=== PATIENT | female | born 1995 | race Caucasian/White ===

== ENCOUNTER 2021-05-13 09:01 | Emergency (ER) | payer BC, SELFPAY ==
[2021-05-13 09:10] VITALS: BP 147/96; PULSE 129; RESP 19; TEMP 36.9; O2SAT 99; BMI 31.4
[2021-05-13 09:44] LABS: UTC Influenza A Antigen Negative (Negative); UTC Influenza B Antigen Negative (Negative)
--- NOTE | 2021-05-13 09:50 | HMH.EDUTC ---
[facility] Clinical Impression: COVID-19, Sinus tachycardia Disposition: Home, Self-Care Condition on Discharge: Fair Instructions: DI for Tachycardia, DI for COVID-19 (Suspected or Confirmed ) Additional Instructions: You have been evaluated for elevated heart rates, body aches, sore throat, cough. You have been diagnosed with COVID-19. Please self isolate and quarantine for 5 days. Take Tylenol for aches and pain. Continue taking propranolol as prescribed by your primary care doctor. Stay hydrated. Follow-up with your PCP in 1 to 2 days for symptom recheck. Return to the emergency department for any new or worsening symptoms, difficulty breathing, low oxygen saturation, other concerns. Referrals: Provider,Referral, [Primary Care Provider] - Forms: Work/School Release Medical Decision Making - Prakash Inquiry Pt receiving controlled substance: No Prakash was queried for this patient: No Vital Signs: 05/13/21 09:10 05/13/21 10:05 05/13/21 10:30 Temperature 98.4 F 98.5 F Temperature Source Oral Oral Pulse Rate 114 H Pulse Rate [Right Brachial] 129 H 112 H Respiratory Rate 19 18 18 Blood Pressure 149/91 H Blood Pressure [Right Arm] 147/96 H 155/95 H Blood Pressure Mean 123 Blood Pressure Mean [Right Arm] 113 115 Blood Pressure Source [Right Arm] Automatic Cuff Blood Pressure Position [Right Arm] Sitting 02 Sat by Pulse Oximetry 99 100 100 Oxygen Delivery Method Room Air Room Air 05/13/21 11:40 Temperature 98.4 F Temperature Source Pulse Rate 107 H Pulse Rate [Right Brachial] Respiratory Rate 18 Blood Pressure 149/81 H Blood Pressure [Right Arm] Blood Pressure Mean Blood Pressure Mean [Right Arm] Blood Pressure Source [Right Arm] Blood Pressure Position [Right Arm] 02 Sat by Pulse Oximetry Oxygen Delivery Method Room Air - Lab Data Lab results reviewed: Yes: I reviewed the patient's lab results. Lab Results 05/13/21 09:18: Influenza Type A Ag Negative, Influenza Type B Ag Negative 05/13/21 09:20: SARS-CoV-2 (PCR) Detected A, Influenza A Untype (PCR) Not detected, Influenza Type B (PCR) Not detected Medical Decision Narrative: Due to patient complaining of feeling heavy in her chest and feels like heart is beating out of her chest and feeling SOA without fever and when it occurs discussed with patient and recommended transfer to the ED for further work up and evaluation and patient agreed patient state that she feels like it is beating hard again rechecked HR 142 Called ED spoke with Marely Grigsby and patient was moved to room 7 [facility] HPI - General Stated complaint: cough, sore throat, soa Time Seen by Provider: 05/13/21 09:50 Mode of Arrival: Ambulatory Source of Information: Patient Limitations: No Limitations Description of Symptoms (Recalled from Triage Doc. 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 and had cough, sore throat diarrhea and bodyaches State that she went to work last night and she noticed she felt heavy in her chest and felt like her heart was beating out of her chest State that she checked her Temp thinking she may have had a fever and she didnt States that her watch kept alarming telling her that her Heartrate was elevated and was ranging anywhere between 125-160 States that she is on Propranolol currently but this morning she was feeling heavy in her chest and felt like her heart was beating out of her chest so she came in concerned and wanted to be tested for COVID to see if that is why her heart feels like i
--- NOTE | 2021-05-13 10:00 | ECG_ITS ---
APPROVED REPORT Exam: Resting ECG HR:115 bpm ECG Measurements Heart Rate 115 AXES OH 138 P 43 QRSd 78 QRS 29 QT 306 T 32 QTc 423 Conclusion Sinus tachycardia Otherwise normal ECG Electronically signed by : Ty Hong MD 05/14/2021 09:00:30
[2021-05-13 10:05] VITALS: BP 155/95; PULSE 112; RESP 18; TEMP 36.9; O2SAT 100; BMI 33.3
--- NOTE | 2021-05-13 10:10 | HMH.EDGENADL ---
ED Disposition Clinical Impression: COVID-19, Sinus tachycardia Disposition: Home, Self-Care Condition on Discharge: Good Instructions: DI for Tachycardia, DI for COVID-19 (Suspected or Confirmed ) Additional Instructions: You have been evaluated for elevated heart rates, body aches, sore throat, cough. You have been diagnosed with COVID-19. Please self isolate and quarantine for 5 days. Take Tylenol for aches and pain. Continue taking propranolol as prescribed by your primary care doctor. Stay hydrated. Follow-up with your PCP in 1 to 2 days for symptom recheck. Return to the emergency department for any new or worsening symptoms, difficulty breathing, low oxygen saturation, other concerns. Referrals: Provider,Referral, [Primary Care Provider] - Forms: Work/School Release Time of Disposition: 10:42 - Critical Care Critical Care Time: No Attestation: On 05/13/21, the high probability of a clinically significant, sudden or life threatening deterioration of the following system(s) required my full and direct attention, intervention and personal management. The time I documented below is in addition to time spent performing reported procedures but includes the following listed in this critical care notation. Medical Decision Making - Medical Records Medical records reviewed: Yes: I reviewed the patient's medical records. - Prakash Inquiry Pt receiving controlled substance: No Vital Signs: 05/13/21 09:10 05/13/21 10:05 Temperature 98.4 F 98.5 F Temperature Source Oral Oral Pulse Rate [Right Brachial] 129 H 112 H Respiratory Rate 19 18 Blood Pressure [Right Arm] 147/96 H 155/95 H Blood Pressure Mean [Right Arm] 113 115 Blood Pressure Source [Right Arm] Automatic Cuff Blood Pressure Position [Right Arm] Sitting 02 Sat by Pulse Oximetry 99 100 Oxygen Delivery Method Room Air Room Air - Lab Data Lab Results 05/13/21 09:18: Influenza Type A Ag Negative, Influenza Type B Ag Negative 05/13/21 09:20: SARS-CoV-2 (PCR) Detected A, Influenza A Untype (PCR) Not detected, Influenza Type B (PCR) Not detected Orders (Tests/Meds): ORDERS Category Date Time Status CXR --portable [XR chest portable] Stat Exams 05/13/21 10:12 Taken Covid-19 Nasal PCR ([facility]) Routine Lab 05/13/21 09:20 Stop Req - ECG Data Tracing #1 NS rhythm with ventricular rate of 115 bpm. QRS 78, QTc 423. No ST segment changes. No arrhythmia. Medical Decision Narrative: In summary this is a 26-year-old female with history of palpitations presenting to the emergency department with rapid heart rate, cough, sore throat. Patient clinically stable on arrival. She is tachycardic to 115. Concern for pneumonia, bronchitis, COVID-19, influenza. Will obtain chest x-ray, EKG, rapid COVID testing. EKG shows sinus tachycardia. No other abnormalities. Chest x-ray shows no focal opacity or multifocal pneumonia. Influenza testing negative. COVID test positive. Patient counseled on findings. She will need to self isolate and quarantine for 5 days. Counseled on conservative management, Tylenol for aches, pains, fever. Encouraged oral hydration. Follow-up with PCP. Given return precautions. Stable for discharge. General Adult HPI - General Stated complaint: cough, sore throat, soa Time Seen by Provider: 05/13/21 09:50 Mode of Arrival: Ambulatory Source of Information: Patient Limitations: No Limitations Description of Symptoms (Recalled from ER Triage Doc. by RN): PATIENT C/O COUGH, SOA, SORE THROAT, BODY ACHES, HOARSENESS, DIARRHEA, AND HEART RACING WITH EXERTION SINCE YESTERDAY - History of Present Illness HPI narrative: 26-year-old female presenting to the emergency department with palpitations. Symptoms started yesterday afternoon. She had cough and chills, voice is hoarse. She has had rapid heart rate and palpitations. She was able to work overnight, as a nurse. This morning the symptoms continued. She presented to the
--- NOTE | 2021-05-13 10:12 | XR_ITS ---
PROCEDURE INFORMATION: Exam: XR Chest Exam date and time: 05/13/2021 10:12 AM Age: 26 years old Clinical indication: Cough TECHNIQUE: Imaging protocol: XR of the chest. Views: 1 view. COMPARISON: No relevant prior studies available. FINDINGS: Lungs: Unremarkable. No consolidation. Pleural spaces: Unremarkable. No pleural effusion. No pneumothorax. Heart/Mediastinum: Unremarkable. No cardiomegaly. Bones/joints: Unremarkable. IMPRESSION: No acute findings.
[2021-05-13 10:20] LABS: Influenza A, PCR Not Detected (NotDetected); Influenza B, PCR Not Detected (NotDetected)
[2021-05-13 10:23] LABS: Coronavirus 19, PCR Detected (NotDetected)
[2021-05-13 10:30] VITALS: BP 149/91; PULSE 114; RESP 18; O2SAT 100
[2021-05-13 11:40] VITALS: BP 149/81; PULSE 107; RESP 18; TEMP 36.9; O2SAT 100
== END 2021-05-13 12:43 | disposition home or self-care (01) ==
LOC: UTC 10:03 → ER 10:04
PROVIDERS: Emergency Provider Nurse Practitioner
DX: U07.1 COVID-19 (principal); R00.0 Tachycardia, unspecified; R06.02 Shortness of breath
CPT/HCPCS: 71045; 87804; 93005; 99282; C9803; U0003; U0005

== ENCOUNTER 2023-08-23 10:00 | Outpatient (RCR) | payer OTHER, SELFPAY | END 2023-08-23 11:00 | disposition home or self-care (01) | LOC: OT 10:00 | PROVIDERS: Visit Provider Preventive Medicine Preventive Medicine/Occupational Environmental Medicine | DX: M79.642 Pain in left hand (principal); S67.22XA Crushing injury of left hand, initial encounter | CPT/HCPCS: 97010; 97014; 97035; 97110; 97140; 97164; 97166; G0283 ==

== ENCOUNTER 2024-02-14 22:16 | Emergency (ER) | payer BC, SELFPAY ==
[2024-02-14 22:18] VITALS: BP 153/83; PULSE 144; RESP 20; TEMP 37.3; O2SAT 100; BMI 37.8
--- NOTE | 2024-02-14 22:25 | ECG_ITS ---
APPROVED REPORT Exam: Resting ECG HR:138 bpm ECG Measurements Heart Rate 138 AXES [place] 144 P 51 QRSd 100 QRS 50 QT 330 T 41 QTc 410 Conclusion Sinus tachycardia Incomplete right bundle branch block Electronically signed by : MEY KOWALSKI, 02/15/2024 22:50:03
--- NOTE | 2024-02-14 22:26 | XR_ITS ---
PROCEDURE INFORMATION: Exam: XR Chest Exam date and time: 02/14/2024 11:16 PM Age: 28 years old Clinical indication: Shortness of breath; Additional info: SOA TECHNIQUE: Imaging protocol: Radiologic exam of the chest. Views: 2 views. Total images: 2 COMPARISON: CR XR CHEST PORTABLE 05/13/2021 10:32 AM FINDINGS: Lungs: Unremarkable. No consolidation. No pulmonary vascular congestion or edema. Pleural spaces: Unremarkable. No pleural effusion. No pneumothorax. Heart/Mediastinum: Unremarkable. No cardiomegaly. No mediastinal widening or hilar enlargement. Bones/joints: Unremarkable. IMPRESSION: No radiographically acute cardiopulmonary process.
--- NOTE | 2024-02-14 22:30 | HMH.EDGENADL ---
Discharge Plan Disposition Patient Disposition: Home, Self-Care Condition: Good Prescriptions Prescriptions: No Action No Known Home Medications Referrals Follow up/Referrals: Juana Schultz APRN [Primary Care Provider] - See instructions Martin Huggins MD [Staff Physician] - See instructions (palpitations, sinus tachycardia) Activity Restrictions/Add. Instructions Additional Instructions/Restrictions: You were evaluated in the ER and are appropriate for discharge at this time. Continue all home medications. Make an appointment with your primary care doctor for reevaluation soon as possible. Also make an appointment with cardiology for repeat echo and additional follow-up. Return to the ER with new, worsening, or otherwise concerning symptoms. Clinical Impressions Clinical Impression: Palpitations Print Language Print Language: [place] Discharge ED Provider: Dane Doran Adult HPI <PORSCHE Ernst - Last Filed: 02/14/24 23:07> General Chief complaint: Dizziness Stated complaint: High heart rate,dizziness Time Seen by Provider: 02/14/24 22:25 Mode of Arrival: Ambulatory Source of Information: Patient Limitations: No Limitations History of Present Illness HPI narrative: 28-year-old female presents to the emergency department with tachycardia, shortness of breath, palpitations, chest tightness that started approximately around 6 PM today, patient noticed that her heart rate on her Apple Watch, read around 120 to 140 bpm this prompted her emergency department visit. Patient states she has a past medical history consistent with tachycardia, has seen fur grader, has had Holter monitor, which she will do no results, has had echocardiogram performed, which noted trace mitral valve regurgitation and trace tricuspid valve regurgitation. Patient states that her tachycardia started after having COVID , last year. Patient has been on propranolol 40 mg up to 80 mg daily as needed, patient is taken 40 mg p.o. propranolol today with little to no relief of symptomatology. Patient denies any fever chills, denies, nausea, vomiting, constipation, diarrhea, does admit to IBS, still has some form of this, but none outside of her normal, denies any urinary type symptomatology, vaginal type symptomatology, she does admit to some dizziness , but no headache, no presyncopal or syncopal event. Patient has no other real relevant past medical history taking takes no medication at home, occasionally uses alcohol, denies any drug use or tobacco products. Initial triage vitals notable for tachycardia otherwise unremarkable. Onset (ago): hour(s) Related Data Home Medications ?Medication ?Instructions ?Recorded ?Confirmed No Known Home Medications 01/24/23 01/24/23 Allergies Allergy/AdvReac Type Severity Reaction Status Date / Time levofloxacin [From Levaquin] Allergy Verified 05/13/21 09:50 [facility] <PORSCHE Ernst - Last Filed: 02/14/24 23:07> [facility] Disclaimer: The information contained in this section may have been updated after the patient was seen, as this information can be updated by other users. Social History Smoking Status: Never smoker alcohol intake: never current occupational status: other Travel in the last 8 weeks: None Other Medical History Have you received the Flu Vaccine for this season: Yes Have you received the Pneumonia Vaccine: Yes <PORSCHE Ernst - Last Filed: 02/14/24 23:07> ROS Obtained: Yes All systems reviewed & no additional complaints except as documented Physical Exam <PORSCHE Ernst - Last Filed: 02/14/24 23:07> General General appearance: alert, in no apparent distress and anxious Head Head exam: atraumatic and normocephalic Eye Eye exam: Present normal appearance, PERRL and EOMI Neck Neck exam: Present full ROM; Absent meningismus Chest Chest inspection: Present normal inspection Respiratory Respiratory exam: Present normal lung sounds bilaterally; Absent respiratory distress, wheezes, stridor, accessory muscle use or prolonged expiratory phase Cardiovascular Cardiovascular exam: Present normal rhythm, tachycardia and other (Pulses equal and symmetric in bilateral upper and lower extremities); Absent rubs, gallop or clicks Abdominal Exam Abdominal exam: Absent distention, tenderness, guarding, rebound or rigidity Extremities Exam Extremities exam: Absent edema Neurological Exam Neurological exam: Present alert Psychiatric Psychiatric exam: Present normal affect Skin Skin exam: Present warm and dry Medical Decision Making <PORSCHE Ernst - Last Filed: 02/14/24 23:07> Medical Records Medical records reviewed: Yes I reviewed the patient's medical records. Screening: Per USPSTF and CDC recommendations, given the prevalence of disease in our region, it is our hospital?s policy to screen for HIV and viral Hepatitis for all patients aged 18 and over and those with ongoing risk factors. Prakash Inquiry Pt receiving controlled substance: No Vital Signs: 02/14/24 22:18 02/15/24 02:01 Temperature 99.1 F 98.9 F Temperature Source Oral Oral Pulse Rate 90 Pulse Rate [Apical] 144 H Respiratory Rate 20 18 Blood Pressure 147/69 H Blood Pressure [Right Arm] 153/83 H Blood Pressure Mean [Right Arm] 106 Blood Pressure Source Automatic Cuff Blood Pressure Source [Right Arm] Automatic Cuff Blood Pressure Position Supine Blood Pressure Position [Right Arm] Sitting 02 Sat by Pulse Oximetry 100 Oxygen Delivery Method Room Air Room Air Lab Data Lab results reviewed: Yes I reviewed the patient's lab results. Lab Results 02/14/24 22:53: WBC 11.2 H, RBC 4.36, Hgb 13.2, Hct 40.0, MCV 91.8, MCH 30.3, MCHC 33.1, RDW 12.8, Plt Count 248, MPV 7.8, Neut % (Auto) 65.9, Lymph % (Auto) 23.3, [place] % (Auto) 7.5, Eos % (Auto) 2.4, Baso % (Auto) 0.9, Neut # (Auto) 7.4, Lymph # (Auto) 2.6, [place] # (Auto) 0.8, Eos # (Auto) 0.3, Baso # (Auto) 0.1, PT 10.9, INR 0.97, D-Dimer 0.26, Sodium 133 L, Potassium 3.5, Chloride 107, Carbon Dioxide 26, Anion Gap 3.5 L, BUN 13, Creatinine 1.00, Estimated Creat Clear 130, Estimated GFR 65, Est GFR ( Amer) 79, Glucose 101 H, Calcium 9.4, Total Bilirubin 0.7, AST 30, ALT 26, Alkaline Phosphatase 72, Troponin I < 0.01, NT-Pro-B Natriuret Pep 25.0, Total Protein 7.5, Albumin 4.4, Globulin 3.1, Albumin/Globulin Ratio 1.4, TSH 3.09, Free T4 1.56, Serum HCG, Qual Negative, HIV 1&2 Antibody Rapid Nonreactive 02/15/24 01:29: Troponin I < 0.01 02/14/24 22:53 02/14/24 22:53 Orders (Tests/Meds): ED MEDICATIONS Discontinued Medications Generic Name Dose Route Start Last Admin Trade Name Freq PRN Reason Stop Dose Admin Aspirin 324 mg 02/14/24 22:25 02/14/24 23:05 Aspirin 81mg Chewable Tablet PO 02/14/24 22:26 324 mg ONCE ONE Administration Aspirin 325 mg 02/15/24 09:00 Aspirin Ec 325mg Tablet PO 03/16/24 08:59 DAILY ELGIN Aspirin 324 mg 02/14/24 22:50 02/14/24 22:53 Aspirin 81mg Chewable Tablet PO 02/14/24 22:51 324 mg ONCE ONE Administration Nitroglycerin 0.4 mg 02/14/24 22:25 Nitroglycerin 0.4mg Sl Tablet SL 02/15/24 22:26 Q5MINP PRN Chest Pain Propranolol HCl 20 mg 02/14/24 23:39 02/15/24 00:03 Propranolol 20mg Tab PO 02/14/24 23:40 20 mg ONCE ONE Administration ORDERS Category Date Time Status XR chest 2V Stat Exams 02/14/24 22:26 Completed Complete Blood Count Auto Diff Stat Lab 02/14/24 22:53 Completed Comprehensive Metabolic Panel Stat Lab 02/14/24 22:53 Completed D-Dimer Stat Lab 02/14/24 22:53 Completed Free T4 (Free Thyroxine) Stat Lab 02/14/24 22:53 Completed HCG Qualitative, Serum Stat Lab 02/14/24 22:53 Completed HIV (1&2) Antibody Rapid Stat Lab 02/14/24 22:53 Completed Hep C Ab with Reflex to RNA Stat Lab 02/14/24 22:53 Received NT Pro Brain Natriuretic Pep. Stat Lab 02/14/24 22:53 Completed Prothrombin Time INR Stat Lab 02/14/24 22:53 Completed TSH [Thyroid Stimulating Hormone] Stat Lab 02/14/24 22:53 Completed Troponin I Q3H Lab 02/15/24 01:29 Completed Troponin I Stat Lab 02/14/24 22:53 Completed Medical Decision Narrative: 28-year-old female presents emergency department with tachycardia, palpitation, shortness of breath, chest tightness, differential diagnose include but not limited to cardiac arrhythmia, electrolyte disturbance, valvular disorder, PE, pneumonia, ACS, anxiety type reaction, panic attack. Obtain CBC CMP, D-dimer, proBNP, PT/INR, troponin, continuous environmental monitoring technician, Pulsoxymeter monitor, chest x-ray, give 325 mg p.o. aspirin. I discussed patient case with the attending physician Dr. Escamilla I along with the attending physician reviewed the patient's EKG, sinus tachycardia at 138 bpm, GA interval within normal limits, QT interval within normal limits there is no STEMI, possible incomplete right bundle branch block. CBC notable for mild leukocytosis, for 11.2 otherwise unremarkable. I discussed patient case with the attending physician at shift change, she will be assuming the patient's care/workup. <Dane Doran MD - Last Filed: 02/15/24 01:59> Vital Signs: 02/14/24 22:18 02/15/24 02:01 Temperature 99.1 F 98.9 F Temperature Source Oral Oral Pulse Rate 90 Pulse Rate [Apical] 144 H Respiratory Rate 20 18 Blood Pressure 147/69 H Blood Pressure [Right Arm] 153/83 H Blood Pressure Mean [Right Arm] 106 Blood Pressure Source Automatic Cuff Blood Pressure Source [Right Arm] Automatic Cuff Blood Pressure Position Supine Blood Pressure Position [Right Arm] Sitting 02 Sat by Pulse Oximetry 100 Oxygen Delivery Method Room Air Room Air Lab Data Lab Results 02/14/24 22:53: WBC 11.2 H, RBC 4.36, Hgb 13.2, Hct 40.0, MCV 91.8, MCH 30.3, MCHC 33.1, RDW 12.8, Plt Count 248, MPV 7.8, Neut % (Auto) 65.9, Lymph % (Auto) 23.3, [place] % (Auto) 7.5, Eos % (Auto) 2.4, Baso % (Auto) 0.9, Neut # (Auto) 7.4, Lymph # (Auto) 2.6, [place] # (Auto) 0.8, Eos # (Auto) 0.3, Baso # (Auto) 0.1, PT 10.9, INR 0.97, D-Dimer 0.26, Sodium 133 L, Potassium 3.5, Chloride 107, Carbon Dioxide 26, Anion Gap 3.5 L, BUN 13, Creatinine 1.00, Estimated Creat Clear 130, Estimated GFR 65, Est GFR ( Amer) 79, Glucose 101 H, Calcium 9.4, Total Bilirubin 0.7, AST 30, ALT 26, Alkaline Phosphatase 72, Troponin I < 0.01, NT-Pro-B Natriuret Pep 25.0, Total Protein 7.5, Albumin 4.4, Globulin 3.1, Albumin/Globulin Ratio 1.4, TSH 3.09, Free T4 1.56, Serum HCG, Qual Negative, HIV 1&2 Antibody Rapid Nonreactive 02/15/24 01:29: Troponin I < 0.01 Orders (Tests/Meds): ED MEDICATIONS Discontinued Medications Generic Name Dose Route Start Last Admin Trade Name Yuli PRN Reason Stop Dose Admin Aspirin 324 mg 02/14/24 22:25 02/14/24 23:05 Aspirin 81mg Chewable Tablet PO 02/14/24 22:26 324 mg ONCE ONE Administration Aspirin 325 mg 02/15/24 09:00 Aspirin Ec 325mg Tablet PO 03/16/24 08:59 DAILY ELGIN Aspirin 324 mg 02/14/24 22:50 02/14/24 22:53 Aspirin 81mg Chewable Tablet PO 02/14/24 22:51 324 mg ONCE ONE Administration Nitroglycerin 0.4 mg 02/14/24 22:25 Nitroglycerin 0.4mg Sl Tablet SL 02/15/24 22:26 Q5MINP PRN Chest Pain Propranolol HCl 20 mg 02/14/24 23:39 02/15/24 00:03 Propranolol 20mg Tab PO 02/14/24 23:40 20 mg ONCE ONE Administration ORDERS Category Date Time Status XR chest 2V Stat Exams 02/14/24 22:26 Completed Complete Blood Count Auto Diff Stat Lab 02/14/24 22:53 Completed Comprehensive Metabolic Panel Stat Lab 02/14/24 22:53 Completed D-Dimer Stat Lab 02/14/24 22:53 Completed Free T4 (Free Thyroxine) Stat Lab 02/14/24 22:53 Completed HCG Qualitative, Serum Stat Lab 02/14/24 22:53 Completed HIV (1&2) Antibody Rapid Stat Lab 02/14/24 22:53 Completed Hep C Ab with Reflex to RNA Stat Lab 02/14/24 22:53 Received NT Pro Brain Natriuretic Pep. Stat Lab 02/14/24 22:53 Completed Prothrombin Time INR Stat Lab 02/14/24 22:53 Completed TSH [Thyroid Stimulating Hormone] Stat Lab 02/14/24 22:53 Completed Troponin I Q3H Lab 02/15/24 01:29 Completed Troponin I Stat Lab 02/14/24 22:53 Completed Medical Decision Narrative: 28-year-old female presents emergency department with tachycardia, palpitation, shortness of breath, chest tightness, differential diagnose include but not limited to cardiac arrhythmia, electrolyte disturbance, valvular disorder, PE, pneumonia, ACS, anxiety type reaction, panic attack. Obtain CBC CMP, D-dimer, proBNP, PT/INR, troponin, continuous environmental monitoring technician, Pulsoxymeter monitor, chest x-ray, give 325 mg p.o. aspirin. I discussed patient case with the attending physician Dr. Escamilla I along with the attending physician reviewed the patient's EKG, sinus tachycardia at 138 bpm, GA interval within normal limits, QT interval within normal limits there is no STEMI, possible incomplete right bundle branch block. CBC notable for mild leukocytosis, for 11.2 otherwise unremarkable. I discussed patient case with the attending physician at shift change, she will be assuming the patient's care/workup. Doran: By my assumption of care patient is stable. She remains tachycardic though her heart rate is now down to the 120s. She states her symptoms have improved somewhat. I agree with the assessment and plan from primary providers. Patient has mild hyponatremia, initial troponin undetectably low at less than 0.01, D-dimer negative, reassuring against PE, TSH and T4 were added by me and are normal. Repeat ECG personally interpreted demonstrates sinus tachycardia, rate 100, normal GA and QTc, normal axis, no STEMI. Initial ECG prior to my assumption of care demonstrated sinus tachycardia, rate 138, normal axis, normal GA and QTc, no STEMI Patient received 20 mg oral propranolol. She states her propranolol had been prescribed 40 mg twice daily but she only takes in the morning because if she takes it at night she gets hypotensive. She was amenable to trying a half dose tonight due to her symptoms. On reassessment after receiving propranolol in the ER, she has had symptomatic improvement. She still states that she feels mildly lightheaded but the discomfort in her chest has resolved. Repeat troponin pending. Repeat troponin also undetectably low at less than 0.01. Patient is appropriate for discharge at this time. She has been referred to cardiology for repeat echo and additional follow-up. I recommended she contact her primary care doctor to address her propranolol dosing for better symptomatic management since they currently manage it. Patient was given instructions on symptomatic management, follow up instructions, and return precautions for the emergency department. Patient indicated understanding and was discharged in stable condition. <Fitz Escamilla MD - Last Filed: 02/15/24 15:08> Vital Signs: 02/14/24 22:18 02/15/24 02:01 Temperature 99.1 F 98.9 F Temperature Source Oral Oral Pulse Rate 90 Pulse Rate [Apical] 144 H Respiratory Rate 20 18 Blood Pressure 147/69 H Blood Pressure [Right Arm] 153/83 H Blood Pressure Mean [Right Arm] 106 Blood Pressure Source Automatic Cuff Blood Pressure Source [Right Arm] Automatic Cuff Blood Pressure Position Supine Blood Pressure Position [Right Arm] Sitting 02 Sat by Pulse Oximetry 100 Oxygen Delivery Method Room Air Room Air Lab Data Lab Results 02/14/24 22:53: WBC 11.2 H, RBC 4.36, Hgb 13.2, Hct 40.0, MCV 91.8, MCH 30.3, MCHC 33.1, RDW 12.8, Plt Count 248, MPV 7.8, Neut % (Auto) 65.9, Lymph % (Auto) 23.3, [place] % (Auto) 7.5, Eos % (Auto) 2.4, Baso % (Auto) 0.9, Neut # (Auto) 7.4, Lymph # (Auto) 2.6, [place] # (Auto) 0.8, Eos # (Auto) 0.3, Baso # (Auto) 0.1, PT 10.9, INR 0.97, D-Dimer 0.26, Sodium 133 L, Potassium 3.5, Chloride 107, Carbon Dioxide 26, Anion Gap 3.5 L, BUN 13, Creatinine 1.00, Estimated Creat Clear 130, Estimated GFR 65, Est GFR ( Amer) 79, Glucose 101 H, Calcium 9.4, Total Bilirubin 0.7, AST 30, ALT 26, Alkaline Phosphatase 72, Troponin I < 0.01, NT-Pro-B Natriuret Pep 25.0, Total Protein 7.5, Albumin 4.4, Globulin 3.1, Albumin/Globulin Ratio 1.4, TSH 3.09, Free T4 1.56, Serum HCG, Qual Negative, HIV 1&2 Antibody Rapid Nonreactive 02/15/24 01:29: Troponin I < 0.01 Orders (Tests/Meds): ED MEDICATIONS Discontinued Medications Generic Name Dose Route Start Last Admin Trade Name Freq PRN Reason Stop Dose Admin Aspirin 324 mg 02/14/24 22:25 02/14/24 23:05 Aspirin 81mg Chewable Tablet PO 02/14/24 22:26 324 mg ONCE ONE Administration Aspirin 325 mg 02/15/24 09:00 Aspirin Ec 325mg Tablet PO 03/16/24 08:59 DAILY ELGIN Aspirin 324 mg 02/14/24 22:50 02/14/24 22:53 Aspirin 81mg Chewable Tablet PO 02/14/24 22:51 324 mg ONCE ONE Administration Nitroglycerin 0.4 mg 02/14/24 22:25 Nitroglycerin 0.4mg Sl Tablet SL 02/15/24 22:26 Q5MINP PRN Chest Pain Propranolol HCl 20 mg 02/14/24 23:39 02/15/24 00:03 Propranolol 20mg Tab PO 02/14/24 23:40 20 mg ONCE ONE Administration ORDERS Category Date Time Status XR chest 2V Stat Exams 02/14/24 22:26 Completed Complete Blood Count Auto Diff Stat Lab 02/14/24 22:53 Completed Comprehensive Metabolic Panel Stat Lab 02/14/24 22:53 Completed D-Dimer Stat Lab 02/14/24 22:53 Completed Free T4 (Free Thyroxine) Stat Lab 02/14/24 22:53 Completed HCG Qualitative, Serum Stat Lab 02/14/24 22:53 Completed HIV (1&2) Antibody Rapid Stat Lab 02/14/24 22:53 Completed Hep C Ab with Reflex to RNA Stat Lab 02/14/24 22:53 Received NT Pro Brain Natriuretic Pep. Stat Lab 02/14/24 22:53 Completed Prothrombin Time INR Stat Lab 02/14/24 22:53 Completed TSH [Thyroid Stimulating Hormone] Stat Lab 02/14/24 22:53 Completed Troponin I Q3H Lab 02/15/24 01:29 Completed Troponin I Stat Lab 02/14/24 22:53 Completed Medical Decision Narrative: 28-year-old female presents emergency department with tachycardia, palpitation, shortness of breath, chest tightness, differential diagnose include but not limited to cardiac arrhythmia, electrolyte disturbance, valvular disorder, PE, pneumonia, ACS, anxiety type reaction, panic attack. Obtain CBC CMP, D-dimer, proBNP, PT/INR, troponin, continuous environmental monitoring technician, Pulsoxymeter monitor, chest x-ray, give 325 mg p.o. aspirin. I discussed patient case with the attending physician Dr. Escamilla I along with the attending physician reviewed the patient's EKG, sinus tachycardia at 138 bpm, GA interval within normal limits, QT interval within normal limits there is no STEMI, possible incomplete right bundle branch block. CBC notable for mild leukocytosis, for 11.2 otherwise unremarkable. I discussed patient case with the attending physician at shift change, she will be assuming the patient's care/workup. I was consulted by the LENORA, and we discussed the complexity of the problems being addressed. I approved the treatment and management plan for this patient's care in the Emergency Department, thus performing a substantive portion of the medical decision making. Fitz Escamilla MD Doran: By my assumption of care patient is stable. She remains tachycardic though her heart rate is now down to the 120s. She states her symptoms have improved somewhat. I agree with the assessment and plan from primary providers. Patient has mild hyponatremia, initial troponin undetectably low at less than 0.01, D-dimer negative, reassuring against PE, TSH and T4 were added by me and are normal. Repeat ECG personally interpreted demonstrates sinus tachycardia, rate 100, normal GA and QTc, normal axis, no STEMI. Initial ECG prior to my assumption of care demonstrated sinus tachycardia, rate 138, normal axis, normal GA and QTc, no STEMI Patient received 20 mg oral propranolol. She states her propranolol had been prescribed 40 mg twice daily but she only takes in the morning because if she takes it at night she gets hypotensive. She was amenable to trying a half dose tonight due to her symptoms. On reassessment after receiving propranolol in the ER, she has had symptomatic improvement. She still states that she feels mildly lightheaded but the discomfort in her chest has resolved. Repeat troponin pending. Repeat troponin also undetectably low at less than 0.01. Patient is appropriate for discharge at this time. She has been referred to cardiology for repeat echo and additional follow-up. I recommended she contact her primary care doctor to address her propranolol dosing for better symptomatic management since they currently manage it. Patient was given instructions on symptomatic management, follow up instructions, and return precautions for the emergency department. Patient indicated understanding and was discharged in stable condition. Critical Care <PORSCHE Ernst - Last Filed: 02/14/24 23:07> Critical Care Time Critical Care Time: No
[2024-02-14] MEDS: ASPIRIN 81MG CHEWABLE TABLET 324 MG PO ×2 (22:53→23:05)
[2024-02-14 23:03] LABS: Basophils # 0.1 K/mm3 (0-0.2); Basophils % 0.9 % (0.1-2.0); Eosinophils # 0.3 K/mm3 (0.0-0.4); Eosinophils % 2.4 % (0.1-12.0); Hemoglobin 13.2 g/dL (12.2-16.2); Lymphocytes # 2.6 K/mm3 (0.7-4.5); Lymphocytes % 23.3 % (10-50); Mean Corpuscular HGB Conc 33.1 g/dL (31.8-35.4); Mean Corpuscular Hemoglobin 30.3 pg (27.0-31.2); Mean Corpuscular Volume 91.8 fl (81-99); Mean Platelet Volume 7.8 fl (7.4-10.4); Monocytes # 0.8 K/mm3 (0.1-1.0); Monocytes % 7.5 % (1.7-9.3); Neutrophils # 7.4 K/mm3 (1.8-7.8); Neutrophils % 65.9 % (37.0-80.0); Platelet Count 248 K/mm3 (142-424); Red Blood Count 4.36 M/mm3 (4.20-5.40); Red Cell Distribution Width 12.8 % (11.5-17.5); White Blood Count 11.2 K/mm3 (4.8-10.8)
[2024-02-14 23:11] LABS: Alanine Aminotransferase 26 U/L (12-78); Albumin Level 4.4 g/dl (3.5-5.0); Albumin/Globulin Ratio 1.4 (1.1-1.8); Alkaline Phosphatase 72 U/L (38-126); Anion Gap 3.5 mEq/L (5-15); Aspartate Amino Transferase 30 U/L (14-36); Bilirubin,Total 0.7 mg/dl (0.2-1.3); Blood Urea Nitrogen 13 mg/dl (7-17); Calcium 9.4 mg/dl (8.4-10.2); Carbon Dioxide 26 mmol/L (22.0-30.0); Chloride 107 mmol/L (98-107); Creatinine Clearance Estimated 130 mL/min (50-200); Estimated Glomerular Filt Rate 65 ml/min (>60); GFR (African American) 79 ML/MIN (>60); Globulin 3.1 g/dL (1.3-3.2); Glucose 101 mg/dl (74-100); Potassium 3.5 mmoL/L (3.5-5.1); Sodium 133 mmol/L (136-145); Total Protein,Serum 7.5 g/dl (6.3-8.2)
[2024-02-14 23:12] LABS: INR 0.97 (0.9-1.1); Prothrombin Time 10.9 seconds (10.1-12.5)
[2024-02-14 23:13] LABS: HCG Qualitative, Serum Negative (Negative)
[2024-02-14 23:18] LABS: D-Dimer 0.26 ug/mL (0.0-0.5)
[2024-02-14 23:35] LABS: Troponin I < 0.01 ng/ml (0.00-0.034)
--- NOTE | 2024-02-14 23:49 | ECG_ITS ---
APPROVED REPORT Exam: Resting ECG HR:100 bpm ECG Measurements Heart Rate 100 AXES FL 145 P 48 QRSd 102 QRS 42 QT 333 T 31 QTc 390 Conclusion SINUS TACHYCARDIA LOW QRS VOLTAGE IN PRECORDIAL LEADS [QRS DEFLECTION < 1.0 mV IN CHEST LEADS] INCOMPLETE RIGHT BUNDLE BRANCH BLOCK [90+ ms QRS DURATION, TERMINAL R IN V1/V2, 40+ ms S IN I/aVL/V4/V5/V6] No STEMI Electronically signed by : OMAR KNOTT, 02/15/2024 07:14:53
[2024-02-15] MEDS: PROPRANOLOL 20MG TAB 20 MG PO (00:03)
[2024-02-15 00:12] LABS: Free T4 (Free Thyroxine) 1.56 ng/dl (0.78-2.19)
[2024-02-15 00:29] LABS: Thyroid Stimulating Hormone 3.09 uIU/mL (0.465-4.68)
[2024-02-15 01:55] LABS: Troponin I < 0.01 ng/ml (0.00-0.034)
[2024-02-15 02:01] VITALS: BP 147/69; PULSE 90; RESP 18; TEMP 37.2; O2SAT 97
[2024-02-15 04:34] LABS: HIV (1&2) Antibody Rapid NONREACTIVE (NONREACTIVE)
[2024-02-16 08:10] LABS: HCV Ab Non Reactive (Non Reactive)
== END 2024-02-15 02:08 | disposition home or self-care (01) ==
PROVIDERS: Emergency Medicine; Physician Assistant; Emergency Provider Emergency Medicine; PCP Nurse Practitioner Family
DX: R00.2 Palpitations (principal); R00.0 Tachycardia, unspecified; R06.02 Shortness of breath; R07.89 Other chest pain; R42 Dizziness and giddiness
CPT/HCPCS: 71046; 80050; 80053; 83880; 84439; 84443; 84484; 84703; 85025; 85378; 85610; 86803; 87389; 93005; 99284

== ENCOUNTER 2024-02-24 10:31 | Outpatient (CLI) | payer BC, SELFPAY | END 2024-02-24 23:59 | disposition home or self-care (01) | LOC: RT 10:33 | PROVIDERS: PCP Nurse Practitioner Family; Visit Provider Physician Assistant | DX: R00.0 Tachycardia, unspecified (principal); R00.2 Palpitations; R06.00 Dyspnea, unspecified | CPT/HCPCS: 93270 ==

== ENCOUNTER 2024-03-02 08:11 | Outpatient (CLI) | payer BC, SELFPAY | END 2024-03-02 23:59 | disposition home or self-care (01) | LOC: RT 08:12 | PROVIDERS: PCP Nurse Practitioner Family; Visit Provider Physician Assistant | DX: R06.00 Dyspnea, unspecified (principal); R00.2 Palpitations; R00.0 Tachycardia, unspecified | CPT/HCPCS: 93306 ==

== ENCOUNTER 2024-09-17 14:05 | Outpatient (CLI) | payer OTHER, BC, SELFPAY ==
--- NOTE | 2024-09-17 14:09 | XR_ITS ---
FINAL REPORT CLINICAL HISTORY: Wrist pain COMPARISON: None FINDINGS: LEFT WRIST Three views demonstrate no acute fracture or dislocation. The visualized joint spaces are normally aligned. The soft tissues are unremarkable. IMPRESSION: No acute bony abnormality. Reviewed, Interpreted and Dictated by Joel Infante MD Transcribed by Luisa Harrison Authenticated and [facility]
--- NOTE | 2024-09-17 14:09 | XR_ITS ---
FINAL REPORT CLINICAL HISTORY: Hand injury, pain COMPARISON: None FINDINGS: LEFT HAND Three views demonstrate no acute fracture or dislocation. The visualized joint spaces are normally aligned. The soft tissues are unremarkable. IMPRESSION: No acute bony abnormality. Reviewed, Interpreted and Dictated by Joel Infante MD Transcribed by Luisa Harrison Authenticated and [facility]
== END 2024-09-17 23:59 | disposition home or self-care (01) ==
LOC: RAD 14:07
PROVIDERS: PCP Nurse Practitioner Family; Visit Provider Nurse Practitioner
DX: S69.92XA Unspecified injury of left wrist, hand and finger(s), initial encounter (principal)
CPT/HCPCS: 73110; 73130

== ENCOUNTER 2024-10-23 15:00 | Outpatient (CLI) | payer BC, SELFPAY ==
--- OUTSIDE RECORDS SUMMARY | 2024-09-18 12:50 | XMS_ITS | Encounter Summary ---
Author Organization [facility] Address [address] [place] [address] Care Team Providers Care Anode Machine Operator Name Role Phone Juana Schultz ROSMERY Primary Care Provider [phone] Reason for Referral * Consultation (Routine) - Pending Review Specialty Diagnoses / Procedures Referred By Huber t Referred To Contact Occupational Therapy Diagnoses Hand pain, left Luisa Pulido PA [address] [address] Phone: tel: fax: Provider, External Referral ID Status Reason Start Date Expiration Date Visits Requested Visits Authorized [id number] Pending Review Specialty Services Required 09/18/2024 03/20/2026 1 1 Reason for Visit * Reason Comments Consult Encounter Details Date Type Department Care Team (Late st Contact Info) Description 09/18/2024 12:50 PM EDT Office Visit [facility] [address] [place] [address] Luisa Pulido PA [address] [address] Crushing injury of left hand and finger, subsequent encounter (Primary Dx); Hand pain, left Social History Tobacco Use Types Packs/Day Years Used Date Smoking Tobacco: Never Smokeless Tobacco: Never Alcohol Use Standard Drinks/Week Comments Yes 1 (1 standard drink = 0.6 oz pure alcohol) Alcoholic Drinks/day: Social alcohol use Humiliation, Afraid, Rape, and Kick questionnair e Answer Date Recorded Within the last year, have y ou been afraid of your partner or ex-partner? Yes 05/06/2023 Within the last year, have y ou been humiliated or emotionally abused in other ways by your partner or ex-partner? No Within the last year, have y ou been kicked, hit, slapped, or otherwise physically hurt by your partner or ex-partner? No 05/06/2023 Within the last year, have y ou been raped or forced to have any kind of sexual activity by your partner or ex-partner? No 05/06/2023 PHQ-2 Answer Date Recorded Patient Health Questionnaire-2 Score 0 09/21/2024 Hunger Vital Sign Answer Date Recorded Within the past 12 months, y ou worried that your food would run out before you got the money to buy more. Never true 05/06/19 24 Within the past 12 months, t he food you bought just didn't last and you didn't have money to get more. Never true 05/06/2023 PRAPARE - Transportation Answer Date Re corded In the past 12 months, has l ack of transportation kept you from medical appointments or from getting medications? No 05/2023 In the past 12 months, has l ack of transportation kept you from meetings, work, or from getting things needed for daily living? No 05/06/2023 Housing Stability Vital Sign Answer Simon e Recorded In the last 12 months, was t here a time when you were not able to pay the mortgage or rent on time? No 05/06/2023 In the last 12 months, how many places have you lived? 2 05/06/2023 In the last 12 months, was t here a time when you did not have a steady place to sleep or slept in a residential (including now)? No 05/06/2023 PHQ-9 Answer Date Recorded Patient Health Questionnaire-9 Score 2 12/30/2023 Utilities Answer Date Recorded In the past 12 months has th e electric, gas, oil, or water company threatened to shut off services in your home? No 05/06/2023 PHQ-2A Answer Date Recorded Patient Health Questionnaire-2 Score 1 03/05/2023 Comments No Sex and Gender Information Value Date Recorded Sex Assigned at Female 03/05/2021 8:14 PM EDT Legal Sex Female 8:42 PM EDT Gender Identity Female 03/05/2021 8:14 PM EDT Sexual Orientation Straight 03/05/2021 8: 14 PM EDT documented as of this encounter Last Filed Vital Signs Vital Sign Reading Time Taken Comments Blood Pressure 112/68 09/18/2024 12:46 PM EDT Pulse 91 09/18/2024 12:46 PM EDT Temperature 36.5 C (97.7 F) 09/18/2024 12:46 PM EDT Respiratory Rate - - Oxygen Saturation 99% 09/18/2024 12:46 PM EDT Inhaled Oxygen Concentration - - Weight 102 kg (225 lb) 09/18/2024 12:46 PM EDT Height 162.6 cm (5' 4 ) 09/18/2024 12:46 PM EDT Body Mass Index 38.62 09/18/2024 12:46 PM EDT documented in this encounter Miscellaneous Notes * Progress Notes - Luisa Pulido PA - 09/18/2024 12:50 PM EDT Hand Surgery Clinic Note CC: Left-hand injury HISTORY OF PRESENT ILLNESS: Zara Connors is a 29 y.o. 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 She was seen at an outside hospital and x-rays were performed. Her main complaints at this time are to include metacarpal pain as well as incomplete fist and ???shaking?? of the hand. Complains of weakness. Patient did have a similar injury to her left-hand a proximally 1 year prior with no bony injury, MRI was personally reviewed and was negative for ligamentous injury PAST MEDICAL HISTORY: Medical History[1] PAST SURGICAL HISTORY: Surgical History[2] MEDICATIONS: Current Medications[3] ALLERGIES: Allergies[4] SOCIAL HISTORY: Social History[5] FAMILY HISTORY Family history is as noted on the history intake form which was reviewed and scanned into [employer]. Negative for bleeding disorders, clotting disorders or anesthesia issues. REVIEW OF SYSTEMS ROS: 14 point review of systems was completed with the patient and documented on written assessmentat this time and was negative except as noted in the HPI. PHYSICAL EXAM: GEN: Healthy appearing, alert, no acute distress SKIN: Normal color, texture; no rashes or lesions HEENT: Normocephalic, no signs of trauma, anicteric, neck with normal ROM PULM: Normal respiratory effort on room air, no audible stridor or wheeze CV: Left hand is well-perfused PSYCH: Pleasant and normal affect NEURO: Alert and oriented x 3. Cranial nerves grossly intact, speech intact EXTREMITY: Patient has pain and tenderness in the metacarpals mostly ulnar in nature, she has an incomplete fist RESULTS: IMAGING: I have personally reviewed the x-rays from the outside hospital which does not show bony abnormality per my personal report ASSESSMENT/PLAN: Zara Connors is a 29 y.o. year-old female presenting for crush injury of the left hand. Patient was likely contusion of hand secondary to crush injury. I have given the patient reassurance that this should continue to improve over time. I will send the patient to occupational therapy for some range of motion exercises to improve her function. I will have her continue off work until she is re-evaluated in a proximally 2 weeks [1] Past Medical History: Diagnosis Date ADHD (attention deficit hyperactivity disorder) Anemia Anxiety Asthma Chronic constipation Chronic diarrhea Conversions - Other History of chronic diarrhea Depression Encounter for screening for infections with a predominantly sexual mode of transmission Screening for STD (sexually transmitted disease) Food intolerance GERD (gastroesophageal reflux disease) HL (hearing loss) Irritable bowel syndrome Migraine, unspecified, not intractable, without status migrainosus Migraine Motion sickness Otitis media Personal history of other diseases of the female genital tract History of abnormal uterine bleeding Personal history of urinary (tract) infections History of urinary tract infection Scoliosis Unspecified symptoms and signs involving the genitourinary system UTI symptoms [2] Past Surgical History: Procedure Laterality Date DILATION AND CURETTAGE OF UTERUS NO PAST SURGERIES N/A no history of surgery from [facility] [3] Current Outpatient Medications Medication Sig Dispense Refill Airsupra 90-80 MCG/ACT aerosol cyanocobalamin 1000 MCG tablet Take 1 tablet (1,000 mcg) by mouth 1 (one) time each day. fluticasone (Flonase) 50 MCG/ACT nasal spray use 1 spray(s) in each nostril once daily ivabradine HCl (Corlanor) 5 MG tablet lamoTRIgine (LaMICtal) 200 MG tablet Take 1 tablet (200 mg) by mouth daily. 90 tablet 1 levocetirizine (Xyzal) 5 MG tablet Take 1 tablet (5 mg) by mouth 1 (one) time each day in the evening. 30 tablet 11 levonorgestrel (Mirena, 52 MG,) 20 MCG/24HR IUD by Intrauterine route. linaCLOtide (Linzess) 290 MCG capsule Take 1 capsule (290 mcg) by mouth 1 (one) time each day before breakfast. 30 capsule 11 lisdexamfetamine (Vyvanse) 60 MG capsule Take 1 capsule by mouth every morning. 30 capsule 0 pantoprazole (Protonix) 40 MG EC tablet Take 1 tablet (40 mg) by mouth 1 (one) time each day. 30 tablet 5 sertraline (Zoloft) 50 MG tablet Take 1 tablet by mouth daily. 30 tablet 1 No current facility-administered medications for this visit. [4] Allergies Allergen Reactions Latex Other - please document in the comment field Levofloxacin Rash [5] Social History Tobacco Use Smoking status: Never Smokeless tobacco: Never Vaping Use Vaping status: Never Used Substance Use Topics Alcohol use: Yes Alcohol/week: 1.0 standard drink of alcohol Types: 1 Standard drinks or equivalent per week Comment: Alcoholic Drinks/day: Social alcohol use Drug use: No Comment: Drug use: No illicit drug use documented in this encounter Plan of Treatment Upcoming Encounters Date Type Department Care Team (Late st Contact Info) Description 11/23/2024 9:00 AM EDT Office Visit Obstetrics & Gynecology [address] [place] [address] Serjio Massey MD [address] [place] [address] Scheduled Orders Name Type Priority Associated Diagnoses Orde r Schedule XR Hand Left 3+ Views Imaging Routine Hand pain, left 1 Occurrences starting 09/17/2024 until 03/20/2026 Scheduled Referrals Name Type Priority Associated Diagnoses Order Schedule Ambulatory referral to Hand Therapy Outpatient Referral Routine Hand pain, left 1 Occurrences starting 09/18/2024 until 03/21/2026 documented as of this encounter Visit Diagnoses Diagnosis Crushing injury of left hand and finger, subsequent encounter- Primary Hand pain, left Pain in soft tissues of limb documented in this encounter Additional Health Concerns Assessment Noted Time PHQ-9 Depression Total Score: 2 12/30/19 24 9:21 AM EDT A fall risk assessment has been complete d for the patient 11/19/2023 10:39 AM EDT A Body Mass Index follow-up plan has been documented for the patient 09/18/2024 1:17 PM EDT documented as of this encounter Care Teams Anode Machine Operator Relationship Specialty Start Date End Date Juana Schultz APRN [address] [place] [id number] PCP - General 02/20/23 documented as of this encounter
--- OUTSIDE RECORDS SUMMARY | 2024-09-21 15:00 | XMS_ITS | Encounter Summary ---
Author Organization [facility] Address [address] [place] [address] Care Team Providers Care Staff Assistant Name Role Phone Antoine, Juana Kay ROSMERY Primary Care Provider Reason for Visit * Reason Comments Gynecologic Exam Pap/pelvic exam/STI screeningPt states cramping and discomfort pain, lower pelvic area. Encounter Details Date Type Department Care Team (Late st Contact Info) Description 09/21/2024 3:00 PM EDT Procedure Visit Obstetrics & Gynecology [address] [place] [address] Michelle Arenas, ROSMERY, DNP [address] [place] [address] Encounter for gynecological examination without abnormal finding (Primary Dx); IUD check up; Endometriosis; Family planning education, guidance, and counseling; Screen for STD (sexually transmitted disease) Social History Tobacco Use Types Packs/Day Years [...] place to sleep or slept in a long term (including now)? No 05/06/2023 PHQ-9 Answer Date Recorded Patient Health Questionnaire-9 Score 2 12/30/2023 Utilities Answer Date Recorded In the past 12 months has e [employer], gas, oil, or water [employer] threatened to shut off services in your [...] Sign Reading Time Taken Comments Blood Pressure 142/87 09/21/2024 3:09 PM EDT Pulse 81 09/21/2024 3:09 PM EDT Temperature 36.7 C (98 F) 09/21/2024 3:09 PM EDT Respiratory Rate - - Oxygen Saturation 98% 09/21/2024 3:09 PM EDT Inhaled Oxygen Concentration - - Weight 100 kg (220 lb 14.4 oz) 09/21/2024 3:09 P M EDT Height 162.6 cm (5' 4 ) 09/21/2024 3:09 PM EDT Body Mass Index 37.92 09/21/2024 3:09 PM EDT documented in this encounter Functional Status * Over the past 2 weeks, how often have you been bothered by any of the following problems? Question Answer Date of Assessment Author Little interest or pleasure in doing things Not at all 09/21/2024 3:12 PM EDT Angélica Shrestha Feeling down, depressed, or hopeless Not at all 09/21/2024 3:12 PM EDT Angélica Shrestha Patient Health Questionnaire -2 Score 0 09/21/2024 3:12 PM EDT Angélica Shrestha * If you checked off any problems on this questionnaire so far, Question Answer Date of Assessment Author How difficult have these problems made it for you to do your work, take care of things at home, or get along with other people? Not difficult at all 09/21/2024 3:12 PM EDT Angélica Shrestha documented as of this encounter Miscellaneous Notes * Progress Notes - Michelle Arenas, MECHANICAL SUPERVISOR, DNP - 09/21/2024 3:00 PM EDT Gynecology Health Maintenance Note Subjective Zara Connors is a 29 y.o. 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 Had Mirena IUD placed 05/2017. States previously had Nexplanon but was experiencing abnormal bldg with it in place. Attempted estrogen therapy and replacement of device but continued to have abnormal bldg. Was told through US that she had uterine fibroid. Underwent D&C to assist with bldg in 2016 and states Endometriosis was also seen at this time. Has originally achieved amenorrhea with device in place but states in the last few months, has been experiencing more sporadic bleeding/spotting.States she has had intermittent pelvic pain cramping that can sometimes be correlated with bleedingpattern. Denies breast concerns. Denies abnormal pap smear screenings in the past. Desires repeat screening today. Denies further bowel issues. Is seen by Gastro for IBS control. Denies bladder issues. Denies vaginal concerns including itch/odor/burn/discharge. Has h/o Chlamydia infection at age 17 but was treated. Is open to G/C/T screening today. PMH significant for GERD, IBS, ADHD/mood disorder, irregular heart rhythm. States she is being followed by Flow Floor Attendant No further questions or concerns today. LMP: 09/19/24 Cycles: irregular Contraception: Mirena IUD 05/2017 Pap: 05/2023 wnl w/neg HPV Colon: 06/2020 Family hx: maternal great aunt; cousin- breast cancer The following chart sections have been reviewed and updated: Tobacco Allergies Meds Problems Med Hx Surg Hx OB Status Fam Hx Review of Systems Constitutional: Negative. HENT: Negative. Eyes: Negative. Respiratory: Negative. Cardiovascular: Negative. Gastrointestinal: Negative. Endocrine: Negative. Genitourinary: Positive for menstrual problem and pelvic pain. Musculoskeletal: Negative. Skin: Negative. Allergic/Immunologic: Negative. Neurological: Negative. Hematological: Negative. Psychiatric/Behavioral: Negative. Objective Visit Vitals BP (!) 142/87 Pulse 81 Temp 36.7 ??C (98 ??F) Body mass index is 37.92 kg/m??. Physical Exam Constitutional: Appearance: Normal appearance. Genitourinary: Right Labia: No rash, tenderness, lesions or skin changes. Left Labia: No tenderness, lesions, skin changes or rash. No vaginal discharge, erythema or tenderness. Right Adnexa: not tender and no mass present. Left Adnexa: not tender and no mass present. No cervical friability. IUD strings visualized. Uterus is not enlarged. Breasts: Breast exam comments: Deferred today. HENT: Head: Normocephalic. Neck: Thyroid: No thyromegaly. Cardiovascular: Rate and Rhythm: Normal rate and regular rhythm. Heart sounds: Normal heart sounds. Pulmonary: Effort: Pulmonary effort is normal. Breath sounds: Normal breath sounds. Abdominal: General: Bowel sounds are normal. Palpations: Abdomen is soft. There is no mass. Tenderness: There is no abdominal tenderness. Neurological: Mental Status: She is alert and oriented to person, place, and time. Skin: General: Skin is warm and dry. Psychiatric: Mood and Affect: Mood normal. Behavior: Behavior normal. Vitals and nursing note reviewed. Exam conducted with a pulmonary disease specialist present. Pap collected today. Assessment Assessment & Plan Encounter for gynecological examination without abnormal finding Orders: Referred ThinPrep Pap and HPV (SO) IUD check up Endometriosis Family planning education, guidance, and counseling Screen for STD (sexually transmitted disease) Orders: Chlamydia trachomatis DNA by PCR; Future Neisseria gonorrhea DNA by PCR; Future Trichomonas Vaginalis Antigen -She desired repeat pap screening today. Will follow and treat appropriately. -Due to increase in bleeding/dysmenorrhea, recommended removal/replacement of IUD at her convenience. Discussed 800Ibuprofen 1 hr prior to visit. Offered thyroid/A1C labs- she prefers to defer at this time and see if bleeding improves with IUD exchange. Discussed impact of known Endometriosis and uterine fibroid on irregular menses. -Will follow STD labs and treat appropriately. -Reviewed health maintenance including diet, regular exercise, dietary supplementation and periodicexams. -Answered all patient questions. Agreeable to POC. -RTC prn or annually Time Spent: I personally spent a total of 28 minutes on this encounter. This time includes face to face with patient, counseling and discussion and/or coordination of care. documented in this encounter Plan of Treatment Upcoming Encounters Date Type Department Care Team (Late st Contact Info) Description 11/23/2024 9:00 AM EDT Office Visit Obstetrics & Gynecology [address] [place] [address] Serjio Massey MD [address] [place] [address] documented as of this encounter Procedures Procedure Name Priority Date/Time Associated Diagnosis Comments REFERRED THINPREP PAP AND HPV (SO) Routine 09/21/2024 3:37 PM EDT Encounter for gynecological examination without abnormal finding TRICHOMONAS VAGINALIS ANTIGEN Routine 09/21/2024 3:37 PM EDT Screen for STD (sexually transmitted disease) CHLAMYDIA TRACHOMATIS DNA BY PCR Routine 09/21/2024 3:37 PM EDT Screen for STD (sexually transmitted disease) NEISSERIA GONORRHEA DNA BY PCR Routine 09/21/2024 3:37 PM EDT Screen for STD (sexually transmitted disease) documented in this encounter Results * Referred ThinPrep Pap and HPV (SO) (09/21/2024 3:37 PM EDT) Pap, Source Cx/Vagina 09/29/2024 5:38 PM EDT [facility] ([facility] EER Referred ThinPrep Pap and HPV See Note 09/29/2024 5:38 PM EDT [facility] ([facility]) PAP, THINPREP Normal 09/29/2024 5:38 PM EDT [facility] ([facility]) High Risk HPV Normal 09/29/2024 5:38 PM EDT [facility] ([facility]) Swab Vaginal and cervical cytologic material / Unknown Non-blood Collection / Unknown 09/21/2024 3:37 PM EDT 09/21/2024 5:45 PM EDT Narrative [facility] ([facility]) - 09/29/2024 5:38 PM EDT Authorized individuals can access the [facility] Enhanced Report with an [facility] Connect account using the following link. Your local lab can assist you in obtaining the patient report if you don't have a Connect account. [email or web address] Performed By: [facility] [address] [place] [id number] Tax Consultant: Don Santana MD, PhD CLIA Number: [id number] SPECIMEN PART A. Cervical, Endocervical, Vaginal, ThinPrep Pap (Brush Fabrication Supervisor) CYTOLOGY HX Date of Last Menstrual Period: N FINAL DIAGNOSIS INTERPRETATION: Negative for Intraepithelial Lesion or Malignancy. SPECIMEN ADEQUACY:Satisfactory for evaluation. Endocervical/transformation zone component present. Electronically Signed Out : Ema Boyd Performed by: [facility] [place] [address] Shana Donahue MD, HR-HPV: Negative Test performed by the FDA-approved [employer] (Gen-Probe) APTIMA HPV test, which detects HPV genotypes: 16, 18, 31, 33, 35, 39, 45, 51, 52, 56, 58, 59, 66, and 68. This assay has been cleared for the specimen types listed below. Other specimen types have not been validated for this assay. -Clinician-collected ThinPrep Pap cervical specimens. Performed by: [facility] [place] [address] Shana Donahue MD, Michelle Arenas APRN, DNP LAB REF LAB BLOOD AND F LUID ORD Final Result [facility] [address] [address] * Trichomonas Vaginalis Antigen (09/21/2024 3:37 PM EDT) Trichomonas vaginalis Antigen Result Negative Negative 09/21/2024 10:12 PM EDT [facility] Swab Vaginal structure / Unknown Non-blood Collection / Unknown 09/21/2024 3:37 PM EDT 09/21/2024 5:46 PM EDT Narrative [facility] - 09/21/2024 10:12 PM EDT This test was developed and its performance characteristics determined by [facility]. It has not been cleared or approved by the US Food and Drug Administration. FDA does not require this test to go through premarket FDA review. This test is used for clinical purposes. It should not be regarded as investigational or for research. This laboratory is certified under the Clinical Laboratory Improvement Amendments (CLIA) as qualified to perform high complexity clinical laboratory testing. Michelle Arenas APRN, DNP LAB MICROBIOLOGY - GENE RAL ORDERABLES Final Result Performing Organization Address [facility] Co de Phone Number [facility] [address] [place] [address] * Neisseria gonorrhea DNA by PCR (09/21/2024 3:37 PM EDT) Neisseria gonorrhea DNA PCR Result Not Detected Not Detected. 09/22/2024 11:[address] [facility] Swab Vaginal structure / Unknown Non-blood Collection / Unknown 09/21/2024 3:37 PM EDT 09/21/2024 5:47 PM EDT Narrative [facility] - 09/22/2024 11:24 AM EDT This test is performed by the [employer] instrument for Real Time PCR C. trachomatis and N. gonorrhea. This test is FDA approved for use with endocervical, vaginal, and urine specimens. This test is used for clinical purposes. It should not be regarded as invesigational or for research. The [facility] is certified under the Clinical Laboratory Improvement Amendments of 1988 (CLIA-88) as qualified to perform high complexity clinical laboratory testing. Michelle Arenas APRN, DNP LAB MICROBIOLOGY - GENE RAL ORDERABLES Final Result Performing Organization Address City/[facility]/ZIP Co de Phone Number [facility] [address] [place] [address] * Chlamydia trachomatis DNA by PCR (09/21/2024 3:37 PM EDT) Chlamydia trachomatis DNA PCR Result Not Detected Not Detected 09/22/2024 11:[address] [facility] Swab Vaginal structure / Unknown Non-blood Collection / Unknown 09/21/2024 3:37 PM EDT 09/21/2024 5:47 PM EDT Narrative [facility] - 09/22/2024 11:24 AM EDT This test is performed by the [email or web address] [email or web address] instrument for Real Time PCR C. trachomatis and N. gonorrhea. This test is FDA approved for use with endocervical, vaginal, and urine specimens. This test is used for clinical purposes. It should not be regarded as invesigational or for research. The [facility] is certified under the Clinical Laboratory Improvement Amendments of 1988 (CLIA-88) as qualified to perform high complexity clinical laboratory testing. us Michelle Arenas APRN, YOU LAB MICROBIOLOGY - GENE RAL ORDERABLES Final Result [facility] [address] [place] [address] documented in this encounter Visit Diagnoses Diagnosis Encounter for gynecological examination without abnormal finding- Primary IUD check up Endometriosis Endometriosis, site unspecified Family planning education, guidance, and counseling Other general counseling and advice for contraceptive management Screen for STD (sexually transmitted disease) Screening examination for venereal disease documented in this encounter Additional Health Concerns Assessment Noted Time PHQ-9 Depression Total Score: 2 12/30/19 24 9:21 AM EDT A fall risk assessment has been complete d for the patient 09/21/2024 3:12 PM EDT A Body Mass Index follow-up plan has been documented for the patient 09/21/2024 3:45 PM EDT documented as of this encounter Care Teams Staff Assistant Relationship Specialty Start Date End Date Juana Schultz APRN [address] [place] [address] PCP - General 02/20/23 documented as of this encounter
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
--- OUTSIDE RECORDS SUMMARY | 2024-10-23 10:45 | XMS_ITS | Encounter Summary ---
Author Organization Healthcare Address [address] [place] [address] Care Team Providers Care Receivable Clerk Name Role Phone Juana Schultz APRN Primary Care Provider [phone] Reason for Referral * Other Medical (Routine) - Pending Review Specialty Diagnoses / Procedures Referred By Huber sandoval Referred To Contact Diagnoses Encounter for removal and reinsertion of IUD Procedures IUD Management Michelle Arenas APRN, DNP [address] [place] [address] Phone: tel: fax: Referral ID Status Reason Start Date Expiration Date V isits Requested Visits Authorized [id number] Pending Review 10/23/2024 04/24/2026 1 1 Reason for Visit * Reason Comments Procedure IUD removal/replacem entPt denies pain. PT states no Q/C. Encounter Details Date Type Department Care Team (Late st Contact Info) Description 10/23/2024 10:45 AM EDT Procedure Visit Obstetrics & Gynecology [address] [place] [address] Michelle Arenas APRN, DNP [address] [place] [address] Encounter for removal and reinsertion of IUD (Primary Dx); Screening examination for STD (sexually transmitted disease); Family planning education, guidance, and counseling; Mass overlapping multiple quadrants of right breast Social History Tobacco Use Types Packs/Day Years [...] Date Recorded Patient Health Questionnaire-2 Score 0 10/23/2024 Hunger Vital Sign Answer Date Recorded Within [...] place to sleep or slept in a jail (including now)? No 05/06/2023 PHQ-9 Answer Date Recorded Patient Health Questionnaire-9 Score 2 12/30/2023 Utilities Answer Date Recorded In the past 12 months has th [employer] electric, gas, oil, or water company threatened [...] Sign Reading Time Taken Comments Blood Pressure 137/82 10/23/2024 11:20 AM EDT Pulse 74 10/23/2024 11:20 AM EDT Temperature 36.8 C (98.2 F) 10/23/2024 11:20 AM EDT Respiratory Rate - - Oxygen Saturation 100% 10/23/2024 11:20 AM EDT Inhaled Oxygen Concentration - - Weight 100 kg (221 lb 5.5 oz) 10/23/2024 11:20 A M EDT Height 162.6 cm (5' 4 ) 10/23/2024 11:20 AM EDT Body Mass Index 37.99 10/23/2024 11:20 AM EDT documented in this encounter Functional Status * Over the past 2 weeks, how often have you been bothered by any of the following problems? Question Answer Date of Assessment Author Little interest or pleasure in doing things Not at all 10/23/2024 11:23 AM EDT Angélica Shrestha Feeling down, depressed, or hopeless Not at all 10/23/2024 11:23 AM EDT Angélica Shrestha Patient Health Questionnaire -2 Score 0 10/23/2024 11:23 AM EDT Angélica Shrestha * If you checked off any problems on this questionnaire so far, Question Answer Date of Assessment Author How difficult have these problems made it for you to do your work, take care of things at home, or get along with other people? Not difficult at all 10/23/2024 11:23 AM EDT Angélica Shrestha documented as of this encounter Miscellaneous Notes * Progress Notes - Michelle Arenas, PERFORMANCE MANAGEMENT CONSULTANT, DNP - 10/23/2024 10:45 AM EDT Associated Order(s): IUD Management Images from the original note were not included. Gynecology Progress Note Candida Connors is a 29 y.o. 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 HPI 09/21/24: Had Mirena IUD placed 05/2017. States previously [...] few months, has been experiencing more sporadic bleeding/spotting. States she has had intermittent pelvic pain cramping that can sometimes be correlated with bleeding pattern. Here today after consideration of options and desires removal/replacement. She has premedicated with Ibuprofen. Also reports concerns for palpable mass within right breast near sternum in the last week. Is tender to touch. No identifiable skin changes, nipple discharge, or musculoskeletal activity changes. No further questions or concerns today. LMP: 09/19/24 Cycles: irregular Contraception: Mirena IUD 05/2017 Pap: 05/2023 wnl w/neg HPV Colon: 06/2020 Family hx: maternal great aunt; cousin- breast cancer Review of Systems Constitutional: Negative. HENT: Negative. Eyes: Negative. Respiratory: Negative. Cardiovascular: Negative. Gastrointestinal: Negative. Endocrine: Negative. Genitourinary: Palpable right breast mass Musculoskeletal: Negative. Skin: Negative. Allergic/Immunologic: Negative. Neurological: Negative. Hematological: Negative. Psychiatric/Behavioral: Negative. Objective Visit Vitals BP 137/82 Pulse 74 Temp 36.8 ??C (98.2 ??F) Physical Exam Constitutional: Appearance: Normal appearance. Genitourinary: Right Labia: No rash, tenderness, lesions or skin changes. Left Labia: No tenderness, lesions, skin changes or rash. No vaginal discharge, erythema or tenderness. Right Adnexa: not tender and no mass present. Left Adnexa: not tender and no mass present. No cervical friability. IUD strings visualized. Uterus is not enlarged. Breasts: Right: Mass and tenderness present. No nipple discharge or skin change. Left: No mass, nipple discharge, skin change or tenderness. Breast exam comments: Round <5mm pea sized mass, easily mobile, near 3:00 of right breast, tender to palpation. HENT: Head: Normocephalic. Pulmonary: Effort: Pulmonary effort is normal. Chest: Neurological: Mental Status: She is alert and oriented to person, place, and time. Psychiatric: Mood and Affect: Mood normal. Behavior: Behavior normal. Vitals and nursing note reviewed. Exam conducted with a clearance cutter present. Labs: UPT negative Patient ID: Zara Connors is a 29 y.o. female. Encounter Diagnoses Name Primary? Encounter for removal and reinsertion of IUD Yes Screening examination for STD (sexually transmitted disease) Family planning education, guidance, and counseling IUD Management Date/Time: 10/23/2024 11:46 AM Performed by: Michelle Arenas APRN, DNP Authorized by: Michelle Arenas APRN, DNP Procedure: IUD removal and insertion Consent obtained by patient, parent, or legal power of ip attorney - including discussion of procedurerisks and benefits, patient questions answered, and patient education provided: yes Reason for removal: patient request Strings visualized: yes IUD grasped by forceps: yes IUD removed: yes Removed without complications: yes IUD intact: yes Removal comments: Pt tolerated well. risk: reasonably certain the patient is not Pre-Medications: Ibuprofen Immediately prior to procedure a time out was called: yes Pelvic exam performed: yes Speculum placed in vagina: yes Cervix cleaned and prepped: yes Tenaculum/Allis/Ring Forceps applied to cervix: yes Anesthesia used: no Uterus sound depth (cm): 7 IUD inserted without complications: yes OSM: 1 each levonorgestrel 20 MCG/DAY Strings trimmed to (cm): 3 Patient tolerated procedure well: yes Inserted with ultrasound guidance: no Transvaginal sono confirmed fundal placement: no Estimated blood loss (mL): 0 Intended removal date: 8 years Insertion comments: Pt tolerated well. [facility]: [id number] EXP: 09/03/2026 LOT: [id number] Assessment/Plan Assessment & Plan Encounter for removal and reinsertion of IUD Orders: POCT Urine IUD Management Screening examination for STD (sexually transmitted disease) Orders: Neisseria gonorrhea DNA by PCR Chlamydia trachomatis DNA by PCR Family planning education, guidance, and counseling Mass overlapping multiple quadrants of right breast Orders: US Breast Limited Left; Future Mammography Breast Diagnostic Tomosynthesis Bilateral; Future -Mirena IUD removed and replaced today. Discussed effective for 8 yrs for contraception, 5 yrs for tx of HMB. Enc nothing in vagina for 1 week, back up protection for 2 weeks, and string check at 4 weeks. NSAIDS/heat prn. Discussed expected bldg outcomes with device in place. -Will follow STD labs and treat appropriately. -Arranging breast imaging to f/u on palpable breast mass today. Enc to call [phone] to schedule imaging. Enc to let us know if any difficulty in scheduling. -Answered all patient questions. Agreeable to POC. -RTC 4 weeks string check or prn Time Spent: I personally spent a total of 35 minutes on this encounter. This time includes face to face with patient, counseling and discussion and/or coordination of care. documented in this encounter Plan of Treatment Upcoming Encounters Date Type Department Care Team (Late st Contact Info) Description 11/23/2024 9:00 AM EDT Office Visit Obstetrics & Gynecology [address] [place] [address] Serjio Massey MD [address] [place] [address] Pending Results Name Type Priority Associated Diagnoses Date /Time Neisseria gonorrhea DNA by PCR Microbiology Routine Screening examination for STD (sexually transmitted disease) 10/23/2024 11:24 AM EDT Chlamydia trachomatis DNA by PCR Microbiology Routine Screening examination for STD (sexually transmitted disease) 10/23/2024 11:24 AM EDT Scheduled Orders Name Type Priority Associated Diagnoses Orde r Schedule US Breast Limited Left Imaging Routine Mass overlapping multiple quadrants of right breast Expected: 10/23/2024 (Approximate), Expires: 04/26/2026 Mammography Breast Diagnostic Tomosynthesis Bilateral Imaging Routine Mass overlapping multiple quadrants of right breast Expected: 10/23/2024 (Approximate), Expires: 04/26/2026 documented as of this encounter Procedures Procedure Name Priority Date/Time Associated Diagnosis Comments MD REMOVE INTRAUTERINE DEVICE Routine 10/23/2024 11:46 AM EDT Encounter for removal and reinsertion of IUD MD INSERT INTRAUTERINE DEVICE Routine 10/23/2024 11:46 AM EDT Encounter for removal and reinsertion of IUD POCT , URINE Routine 10/23/2024 11:20 AM EDT Encounter for removal and reinsertion of IUD documented in this encounter Results * MD INSERT INTRAUTERINE DEVICE, MD REMOVE INTRAUTERINE DEVICE (10/23/2024 11:46 AM EDT) Narrative Michelle Arenas APRN, DNP - 10/23/2024 11:46 AM EDT Michelle Arenas APRN, DNP 10/23/2024 11:55 AM IUD Management Date/Time: 10/23/2024 11:46 AM Performed by: Michelle Arenas APRN, DNP Authorized by: Michelle Arenas APRN, DNP Procedure: IUD removal and insertion Consent obtained by patient, parent, or legal power of ip attorney - including discussion of procedure risks and benefits, patient questions answered, and patient education provided: yes Reason for removal: patient request Strings visualized: yes IUD grasped by forceps: yes IUD removed: yes Removed without complications: yes IUD intact: yes Removal comments: Pt tolerated well. risk: reasonably certain the patient is not Pre-Medications: Ibuprofen Immediately prior to procedure a time out was called: yes Pelvic exam performed: yes Speculum placed in vagina: yes Cervix cleaned and prepped: yes Tenaculum/Allis/Ring Forceps applied to cervix: yes Anesthesia used: no Uterus sound depth (cm): 7 IUD inserted without complications: yes OSM: 1 each levonorgestrel 20 MCG/DAY Strings trimmed to (cm): 3 Patient tolerated procedure well: yes Inserted with ultrasound guidance: no Transvaginal sono confirmed fundal placement: no Estimated blood loss (mL): 0 Intended removal date: 8 years Insertion comments: Pt tolerated well. [facility]: [id number] EXP: 09/03/2026 LOT: [id number] Michelle Arenas APRN, DNP IN CLINIC/BEDSIDE ORDER AMBER Final Result * POCT Urine (10/23/2024 11:20 AM EDT) Urine - Point of Care Negative Negative - women after 7 weeks gestation and dilute urine (specific gravity <1.010) may have false negative results. Plasma HCG testing is recommended. Test performed at Point of Care. INTERNAL QC OK, PREG URINE yes KIT LOT NUMBER, PREG URINE [id number] KIT EXPIRATION DATE, PREG URINE 04/12/2026 Urine Urine specimen obtained by clean catch procedure / Unknown 10/23/2024 11:20 AM EDT Michelle Arenas APRN, DNP POINT OF CARE TEST ENTE R/EDIT ORDERABLES Final Result documented in this encounter Visit Diagnoses Diagnosis Encounter for removal and reinsertion of IUD- Primary Screening examination for STD (sexually transmitted disease) Family planning education, guidance, and counseling Other general counseling and advice for contraceptive management Mass overlapping multiple quadrants of right breast documented in this encounter Administered Medications Inactive Administered Medications - up to 3 most recent administrations Medication Order MAR Action Action Date Dose Rate Site levonorgestrel (Mirena) 20 MCG/DAY IUD 1 each Intrauterine, Once PRN Procedure, 1 dose, Starting on Sat10/23/24 at 1146, Until Sat10/23/24 at 1146, RoutineIndications:Encounter for removal and reinsertion of IUD Given 10/23/2024 11:46 AM EDT 1 each documented in this encounter Additional Health Concerns Assessment Noted Time PHQ-9 Depression Total Score: 2 12/30/19 24 9:21 AM EDT A fall risk assessment has been complete d for the patient 10/23/2024 11:23 AM EDT A Body Mass Index follow-up plan has been documented for the patient 10/23/2024 11:55 AM EDT documented as of this encounter Care Teams Receivable Clerk Relationship Specialty Start Date End Date Juana Schultz, PERFORMANCE MANAGEMENT CONSULTANT [facility] [place] [address] PCP - General 02/20/23 documented as of this encounter
--- OUTSIDE RECORDS SUMMARY | 2024-10-23 15:02 | XMS_ITS | Encounter Summary ---
Author Organization [facility] Address [address] [place] [address] Care Team Providers Care Pattern Finisher Name Role Phone Med Abarca DO Primary Care Provider [phone] Nini Salazar DO Primary Care Provider [phone] Juana Schultz APRN Primary Care Provider [phone] Reason for Referral * Consultation (Routine) - Closed Specialty Diagnoses / Procedures Referred By Contac t Referred To Contact Cardiology Diagnoses Palpitations Penny Cruz PA [address] [place] [address] Phone: tel: fax: [facility] [address] [address] Phone: tel: fax: Referral ID Status Reason Start Date Expiration Date V isits Requested Visits Authorized [id number] Closed Specialty Services Required 03/20/2021 09/19/2022 1 1 Encounter Details Date Type Department Care Team (Late st Contact Info) Description 03/20/2021 Community [facility] [address] [place] [address] Penny Cruz PA [address] [place] [address] Palpitations (Primary Dx); Palpitation Social History Tobacco Use Types Packs/Day Years Used Date Smoking Tobacco: Never Alcohol Use Standard Drinks/Week Comments Yes 0 (1 standard drink = 0.6 oz pure alcohol) Alcoholic Drinks/day: Social alcohol use Comments Unknown Sex and Gender Information Value Date Recorded Sex Assigned at Female 03/05/2021 8:14 PM EDT Legal Sex Female 8:42 PM EDT Gender Identity Female 03/05/2021 8:14 PM EDT Sexual Orientation Straight 03/05/2021 8: 14 PM EDT COVID-19 Exposure Response Date Recorded In the last month, have you been in contact with someone who was confirmed or suspected to have Coronavirus / COVID-19? No / Unsure 03/05/2021 8:16 PM EDT documented as of this encounter Plan of Treatment Upcoming Encounters Date Type Department Care Team (Late st Contact Info) Description 11/23/2024 9:00 AM EDT Office Visit Obstetrics & Gynecology [address] [place] [address] Serjio Massey MD [address] [place] [address] Scheduled Referrals Name Type Priority Associated Diagnoses Order Schedule Ambulatory referral to Cardiology Outpatient Referral Routine Palpitations Expected: 03/20/2021 (Approximate), Expires: 09/17/2021 documented as of this encounter Visit Diagnoses Diagnosis Palpitations- Primary Palpitation Palpitations documented in this encounter Care Teams Pattern Finisher Relationship Specialty Start Date End Date Med Abarca DO [address] [address] PCP - General 09/16/20 01/22/23 Nini Salazar DO [address] [address] PCP - General Family Medicine 01/23/23 02/19/23 Juana Schultz APRN [address] [place] [address] PCP - General 02/20/23 documented as of this encounter
--- OUTSIDE RECORDS SUMMARY | 2024-10-23 15:02 | XMS_ITS | Encounter Summary ---
Author Organization Healthcare Address [address] [place] [address] Care Team Providers Care Glue Mill Operator Name Role Phone Juana Schultz ROSMERY Primary Care Provider Encounter Details Date Type Department Care Team ([facility] st Contact Info) Description 09/17/2024 Orders Only External Location [address] [place] [id number] Provider, External Social History Tobacco Use Types Packs/Day Years [...] Visit Obstetrics & Gynecology [address] [place] [address] Serjio Massey MD [address] [place] [address] documented as of this encounter Procedures Procedure Name Priority Date/Time Associated Diagnosis Comments XR MSK OUTSIDE IMAGES 09/17/2024 2:25 PM EDT documented in this encounter Results * XR MSK OUTSIDE IMAGES (09/17/2024 2:25 PM EDT) Anatomical Region Laterality Modality Radiographic Ofelia ging 09/17/2024 2:25 PM EDT us External Provider IMG XR PROCEDURES Final Result documented in this encounter Visit Diagnoses Not on filedocumented in this encounter Additional Health Concerns Assessment Noted Time PHQ-9 Depression Total Score: 2 12/30/19 9:21 AM EDT A fall risk assessment has been complete d for the patient 11/19/2023 10:39 AM EDT A Body Mass Index follow-up plan has been documented for the patient 07/30/2024 11:20 AM EDT documented as of this encounter Care Teams Glue Mill Operator Relationship Specialty Start Date End Date Juana Schultz APRN [address] [place] [address] PCP - General 02/20/23 documented as of this encounter
--- OUTSIDE RECORDS SUMMARY | 2024-10-23 15:02 | XMS_ITS | Encounter Summary ---
Author Organization [facility] Address [address] [place] [address] Care Team Providers Care Foundry Laborer Coreroom Name Role Phone Juana Schultz ROSMERY Primary Care Provider Encounter Details Date Type Department Care Team (Latest Contact Info) Description 09/18/2024 Travel Social History Tobacco Use Types Packs/Day Years [...] Date Recorded Patient Health Questionnaire-2 Score 0 12/30/2023 Hunger Vital Sign Answer Date Recorded Within [...] Visit Obstetrics & Gynecology [address] [place] [address] Serjio Massey MD [address] [place] [address] documented as of this encounter Visit Diagnoses Not on filedocumented [...] documented as of this encounter Care Teams Foundry Laborer Coreroom Relationship Specialty Start Date End Date Juana Schultz APRN [address] [place] [id number] PCP - General 02/20/23 documented as of this encounter
--- OUTSIDE RECORDS SUMMARY | 2024-10-23 15:02 | XMS_ITS | Encounter Summary ---
Author Organization Healthcare Address [address] [place] [address] Care Team Providers Care Marketing Operations Consultant Name Role Phone Juana Schultz APRN Primary Care Provider Encounter Details Date Type Department Care Team (Late st Contact Info) Description 03/27/2023 Outside Procedure [facility] [address] [place] [address] Provider, External Social History Tobacco Use Types Packs/Day Years Used Date Smoking Tobacco: Never Smokeless Tobacco: Never Alcohol Use Standard Drinks/Week Comments Yes 0 (1 standard drink = 0.6 oz pure alcohol) Alcoholic Drinks/day: Social alcohol use PHQ-2 Answer Date Recorded Patient Health Questionnaire-2 Score 1 03/05/2023 PHQ-9 Answer Date Recorded Patient Health Questionnaire-9 Score 6 03/05/2023 PHQ-2A Answer Date Recorded Patient Health Questionnaire-2 Score 1 03/05/2023 Comments Unknown Sex and Gender Information Value [...] EDT Office Visit Obstetrics & Gynecology [address] [place] [address] Serjio Massey MD [address] [place] [address] documented as of this encounter Procedures Procedure Name Priority Date/Time Associated Diagnosis Comments EGD 03/27/2023 9:40 AM EST documented in this encounter Results * EGD (03/27/2023 9:40 AM EST) Anatomical Region Laterality Modality Endoscopy 03/27/2023 9:31 AM EST Impressions 03/27/2023 9:40 AM EST Please see media tab for the result. Information added by interface. Narrative Procedure Note Max Hernandez MD - 03/27/2023 IMPRESSION: Please see media tab for the result. Information added by interface. us External Provider GI PROCEDURE ORDERABLES Final Result documented in this encounter Visit Diagnoses Not on filedocumented in this encounter Additional Health Concerns Assessment Noted Time PHQ-9 Depression Total Score: 6 03/05/20 9:17 PM EDT A fall risk assessment has been complete d for the patient 02/20/2023 10:55 AM EDT A Body Mass Index follow-up plan has been documented for the patient 02/20/2023 11:18 AM EDT documented as of this encounter Care Teams Marketing Operations Consultant Relationship Specialty Start Date End Date Juana Schultz APRN [address] [place] [address] [place] [address] PCP - General 02/20/23 documented as of this encounter
--- OUTSIDE RECORDS SUMMARY | 2024-10-23 15:02 | XMS_ITS | Data Portability ---
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 Plan of Treatment Reminders Order Date Submit Date Provider Last Modified By Organization Details Last Modified Time Details Appointments None recorded. Lab rapid flu (A+B) 2023 024 [facility], [address] [place] [address], [id number], 4 11:36:27 rapid SARS CoV + SARS CoV 2 Ag, QL IA, respiratory specimen 2023 024 [facility], [address] [place] [address], [id number], 4 11:37:05 urinalysis, dipstick 2022 023 [email or web address], [address], [place], [address], 3 09:46:28 culture, urine 2022 023 [facility], [address], [place], [place], [address], 3 04:08:40 urinalysis, dipstick [address] [facility], [address], [place], [address], 3 11:55:23 rapid SARS CoV + SARS CoV 2 Ag, QL IA, respiratory specimen 2021 022 [facility], [address] [place] [address], [phone], 2 10:20:10 rapid flu (A+B) 2021 022 [facility], [address] [place] [address], [phone], 2 10:20:10 rapid strep group A, throat 2021 022 [facility], [address] [place] [address], [id number], 2 10:20:10 Referral gastroenter ologist referral [address] [facility], [address], [address], 3 08:04:53 Procedures None recorded. Surgeries None recorded. Imaging XR, forearm, 2 view 2023 024 [facility], [address], [place], [address], 4 13:24:36 Medication Orders dexamethaso ne sodium phosphate 4 mg/mL injection solution 2023 024 [facility] Not available 4 10:26:59 Zithromax Z-Sagar 250 mg tablet 2023 024 [facility] 196, [address] [address], 4 10:24:45 fluticasone propionate 50 mcg/actuati on nasal spray,suspe nsion 2023 024 [facility] 591, [address], [address], 4 10:24:45 propranolol 40 mg tablet 2022 023 [facility], [address], [place], [address], 3 09:46:38 Macrobid 100 mg capsule 2022 023 [facility], [id number], [place], [address], 4 09:36:22 fluconazole 150 mg tablet 2022 023 [facility], [address], [place], [address], 4 09:37:42 dexamethaso ne sodium phosphate 4 mg/mL injection solution 2021 [facility] Not available 09:37:38 ceftriaxone 1 gram solution for injection 2021 [facility] Not available 4 09:36:06 Keflex 500 mg capsule 2021 [facility] [id number], [address] [place] [address] , [place], [address], 4 09:37:45 Patient TargetsNo targets recorded. Patient Instructions Encounter Date Encounter Id Patient Instructions Last Modified By Organization Details Last Modified Time 07/23/2022 [id number] Follow up as needed. The patient will report any new or worsening symptoms. The patient will return to clinic if new or worsening symptoms are noted, or if if the symptoms do not resolve. If marked worsening of the symptoms is noted the patient will go to the emergency department of their choice. Not available 07/23/2022 11:57:26 2023 [id number] learning about healthy weight Not available 2023 09:46:26 body mass index: care instructions Not available 2023 09:46:26 Follow up as needed. The patient will report any new or worsening symptoms. The patient will return to clinic if new or worsening symptoms are noted, or if if the symptoms do not resolve. If marked worsening of the symptoms is noted the patient will go to the emergency department of their choice. Not available 2023 09:54:28 07/03/2023 [id number] Follow up as needed. The patient will report any new or worsening symptoms. The patient will return to clinic if new or worsening symptoms are noted, or if if the symptoms do not resolve. If marked worsening of the symptoms is noted the patient will go to the emergency department of their choice. Not available 07/03/2023 11:57:26 Reason for Referral [facility] Referral for Chronic hoarseness Referring Physician: Rupert Maria, Family Medicine, Encounter Date: 07/23/2022 Results Created Date Observation Date Name Description Value Unit Range Abnormal Flag Note LastModifiedBy Organization Detail LastModifiedTime 03/23/20 22 03/23/2022 rapid strep group A, throa t Strep negati ve Not Available [address], [address], 03/23/2022 09:28:10 03/23/20 22 03/23/2022 rapid strep group A, throa t Culture No Not Available [address], [address], 03/23/2022 09:28:10 03/23/20 22 03/23/2022 rapid flu (A+B) Flu negati ve Not Available [address], [address], 03/23/2022 09:28:01 03/23/20 22 03/23/2022 rapid flu (A+B) Type Both A & B Not Available [address], [address], 03/23/2022 09:28:01 03/23/20 22 03/23/2022 rapid SARS CoV + SARS CoV 2 Ag, QL IA, respi rator y speci men SARS CoV antigen Negati ve Not Available [address], [address], 03/23/2022 09:27:56 07/24/19 23 07/23/2022 urina lysis , dipst ick Leukocytes Trace Not Available [facility] [address], [place], [address], 07/23/2022 11:30:31 07/24/19 23 07/23/2022 urina lysis , dipst ick Nitrite negati ve Not Available [facility] [address], [place], [address], 07/23/2022 11:30:31 07/24/19 23 07/23/2022 urina lysis , dipst ick Urobilinogen 1 Not Available [facility] [address], [place], [address], 07/23/2022 11:30:31 07/24/19 23 07/23/2022 urina lysis , dipst ick Protein Negati ve Not Available [facility] [address], [place], [address], 07/23/2022 11:30:31 07/24/19 23 07/23/2022 urina lysis , dipst ick pH 5.[address] [facility] [address], [place], [address], 07/23/2022 11:30:31 07/24/19 23 07/23/2022 urina lysis , dipst ick Blood Non-He molyze d: Trace Not Available [facility] [address], [place], [address], 07/23/2022 11:30:31 07/24/19 23 07/23/2022 urina lysis , dipst ick Specific Dalton 1.030 Not Available [facility] [address] [facility], [place], [address], 07/23/2022 11:30:31 07/24/19 23 07/23/2022 urina lysis , dipst ick Ketone Negati ve Not Available [facility] [address], [place], [address], 07/23/2022 11:30:31 07/24/19 23 07/23/2022 urina lysis , dipst ick Bilirubin Negati ve Not Available [facility] [address], [place], [address], 07/23/2022 11:30:31 07/24/19 23 07/23/2022 urina lysis , dipst ick Glucose Negati ve Not Available [facility] [address], [place], [address], 07/23/2022 11:30:31 07/24/19 23 07/23/2022 urina lysis , dipst ick Appearance Clear Not Available [facility] [address] [facility], [place], [address], 07/23/2022 11:30:31 07/24/19 23 07/23/2022 urina lysis , dipst ick Color Yellow Not Available [facility] [address] [facility], [place], [address], 07/23/2022 11:30:31 04/17/20 23 04/18/2023 URINE CULTU RE, ROUTI NE urine culture, routine Final report Not Available [facility] ([facility]) [address] [facility], [place], [address], 04/19/2023 04:08:40 04/17/20 23 04/18/2023 URINE CULTU RE, ROUTI NE result 1 No growth Not Available [facility] ([facility]) [address] [facility], [place], [address], 04/19/2023 04:08:40 04/17/20 23 2023 urina lysis , dipst ick Leukocytes Trace Not Available [facility] [address] [facility], [place], [address], 2023 09:31:59 04/17/20 23 2023 urina lysis , dipst ick Nitrite negati ve Not Available [facility] [address], [place], [address], 2023 09:31:59 04/17/20 23 2023 urina lysis , dipst ick Urobilinogen 1 Not Available [facility] [address] [facility], [place], [address], 2023 09:31:59 04/17/20 23 2023 urina lysis , dipst ick Protein Negati ve Not Available [facility] [address] [facility], [place], [address], 2023 09:31:59 04/17/20 23 2023 urina lysis , dipst ick pH 7.[address] [facility] [address] [facility], [place], [address], 2023 09:31:59 04/17/20 23 2023 urina lysis , dipst ick Blood Negati ve Not Available [facility] [address], [place], [address], 2023 09:31:59 04/17/20 23 2023 urina lysis , dipst ick Specific Dalton 1.025 Not Available [facility] [address], [place], [address], 2023 09:31:59 04/17/2004/17/2023 urina lysis , dipst ick Ketone Negati ve Not Available [facility] [address], [place], [address], 2023 09:31:59 04/17/20 23 2023 urina lysis , dipst ick Bilirubin Negati ve Not Available [facility] [address], [place], [address], 2023 09:31:59 04/17/20 23 2023 urina lysis , dipst ick Glucose Negati ve Not Available [facility] [address], [place], [address], 2023 09:31:59 04/17/20 23 2023 urina lysis , dipst ick Appearance Slight ly Cloudy Not Available [facility] [address], [place], [address], 2023 09:31:59 04/17/20 23 2023 urina lysis , dipst ick Color Dark Yellow Not Available [facility] [address], [place], [address], 2023 09:31:59 02/04/2002/04/2024 rapid SARS CoV + SARS CoV 2 Ag, QL IA, respi rator y speci men SARS CoV antigen Negati ve Not Available [address], [address], 02/04/2024 09:40:07 02/04/2002/04/2024 rapid flu (A+B) Flu negati ve Not Available [address], [address], 02/04/2024 09:39:48 02/04/2002/04/2024 rapid flu (A+B) Type Both A & B Not Available [address], [address], 02/04/2024 09:39:48 07/03/19 XR, forea rm, 2 view No observ ation record ed. [facility] [address], [place], [address], 07/03/2023 15:09:01 02/15/20 24 02/14/2024 XR, chest , 2 view No observ ation record ed. [facility] [address], [place], [address], 02/17/2024 09:45:58 02/15/20 24 02/14/2024 elect rocar diogr am No observ ation record ed. [facility] [address], [place], [place], [address], 02/17/2024 09:45:24 02/15/20 24 02/14/2024 elect rocar diogr am No observ ation record ed. [facility] [address], [place], [address], 02/17/2024 09:45:14 03/09/20 24 03/02/2024 stres s echoc ardio gram with doppl er color flow (PROC ) No observ ation record ed. [facility] [address], [place], [address], 03/09/2024 12:05:42 09/18/19 25 09/17/2024 XR, wrist , 3 or more view No observ ation record ed. [facility] [address], [place], [address], 09/18/2024 08:58:15 09/18/19 25 09/17/2024 XR, hand, 3 or more view No observ ation record ed. [facility] [address], [place], [address], 09/18/2024 08:57:58 Result Notes None recorded. Problems Name Problem SNOMED Code Status Onset Date Resolution Date Notes Provider Name and Address Organization Details Recorded Time Anxiety 81381003 Active Farida Lofton, APPLICATION PERFORMANCE ENGINEER [address], [place], [address], [place] - [facility] 4 10:22:57 Uterine leiomyoma 48384799 Active 2015 Eve quintero, [place] - [facility] 6 09:36:37 Rectal hemorrhage 83172249 Active 2012 Eve Pereira null, [place] - [facility] 6 09:37:12 Acute urinary tract infection 178589030 Active 2022 Rupert Maria, APPLICATION PERFORMANCE ENGINEER [address], [place], [address], [place] - [facility] 3 11:57:19 Chronic hoarseness 4532841278284 Active 2022 Rupert Maria, APPLICATION PERFORMANCE ENGINEER [address], [place], [address], [place] - [facility] 3 11:57:21 Tachycardia 7314876 Active 2022 Ramila quintero, [place] - [facility] 3 09:18:55 Abnormal urine odor 9330029 Active 2022 Rupert Maria APRN [address], [place], [address], [place] - [facility] 3 09:54:21 Subcutaneou s contracepti ve implant present 809967991 Active 2016 Jenifer Cisneros APRN [address], [place], [address], [place] - [facility] 7 15:05:27 Injury of forearm 154208837 Active 2023 Rupert Maria APRN [address], [place], [address], [place] - [facility] 4 11:33:30 Problem Notes None recorded. Procedures Surgical History Date Name Laterality Status Provider Name and Address Organization Details Recorded Time 022 Medication Reconcilliation completed Natalie Fraire [place] - [facility] 01/12/2022 09:00:27 021 Endoscopy completed Natalie Fraire [place] - [facility] 10/05/2021 13:35:59 019 IUD Insertion completed Natalie Fraire [place] - [facility] 10/05/2021 13:35:59 017 Endometrial Biopsy completed Natalie Fraire [place] - [facility] 10/05/2021 13:35:59 017 Date of Last Pap Smear completed Jenifer Cisneros APRN [address], [place], [address], [place] - [facility] 06/07/2016 21:11:20 016 Hysteroscopy completed Gail Radha [place] - [facility] 04/09/2016 11:24:18 016 Dilation and curettage completed Gail Radha [place] - [facility] 04/09/2016 11:24:04 016 Diagnostic Laparoscopy completed Gail Radha [place] - [facility] 04/09/2016 11:24:10 015 Contraceptive Implant Insertion completed Gail Radha [place] - [facility] 04/09/2016 11:26:29 012 Contraceptive Implant Insertion completed Gail Garcia [place] - [facility] 04/09/2016 11:25:54 Dilation and Curettage, sharp completed Denyphillip Juno [place] - [facility] 10/05/2021 13:35:59 Cystourethroscopy completed Eve sandoval [place] - [facility] 03/23/2016 09:47:13 Oral surgery procedure completed Eve Pereira [place] - [facility] 03/23/2016 09:48:10 Imaging Results None recorded. Procedure Notes None recorded. Medical Equipment None Reported. Allergies Allergen ID Allergen Name Allergen Category Reaction Reaction Severity Criticality Documentation Date Start Date Code Code System Note Provider Name and Address Organization Details Recorded Time 42079 Levaquin medicatio n rash Not available Not available 02/10/20162012 81666 2 RxNorm React ion: rash; Not Available [facility] 6 08:29:03 66844 latex environme nt,medica tion Not available Not available Not available 02/10/20162012 74080 91 RxNorm Not Available [facility] 6 10:12:11 Medications Name Sig Start Date Stop Date Status Note LastModified by Organization Details LastModified Time Levbid 0.375 mg tablet,ex tended release take 1 tablet (0.375 mg) by oral route every 12 hours 07/22 completed Levbid 0.375 mg oral tablet extended release 12 hr;Presc ribe Status: Prescrib ed on: 03/30/20 14 11:24AM; Disconti nued Status: Disconti nued on: 07/23/19 15 10:29AM; User: [email or web address]; Pharmacy Verified : 03/30/20 14 11:24AM Not Available Not Available Not Available lamotrigi ne 150 mg tablet Take 1 tablet every day by oral route. 03/23 completed Not Available Not Available Not Available lamotrigi ne 200 mg tablet Take 1 tablet every day by oral route for 90 days. 2023 active Not Available Not Available Not Avai lable polyethyl debbie glycol 3350 17 gram oral powder packet Take 1 packet as needed by oral route for 10 days. active Not Available Not Available No t Available azithromy zahraa 250 mg tablet TAKE 2 TABLETS BY MOUTH ON DAY 1, AND THEN TAKE 1 TABLET BY MOUTH ONCE A DAY ON DAY 2 THROUGH DAY 5 active Not Available Not Available No t Available fluconazo le 150 mg tablet Take one tablet at time of onset and another tablet 3 days later 02/03 completed Not Available Not Available Not Available ondansetr on HCl 4 mg tablet 10/05 completed Not Available Not Available Not Available sumatript an 50 mg tablet take 1 tablet (50 mg) by oral route once with fluids as early as possible after the onset of a migraine attack;m ay repeat after 2 hours if headache returns, not to exceed 200mg in 24hrs for 30 days 11/24 completed sumatrip medina succinat e 50 mg oral tablet;R ecorded Status: Recorded on: 12/11/19 12 9:59AM;D iscontin ued Status: Disconti nued on: 11/25/19 13 11:25AM; User: [email or web address];Reta chery Completi on: 06/08/19 13;Indic ation: Migraine - (7206 00);Prin mason: 12/11/19 12 Not Available Not Available Not Available penicilli n V potassium 500 mg tablet take 1 tablet (500 mg) by oral route 2 times per day for 10 days 01/20 completed penicill in V potassiu m 500 mg oral tablet;P rescribe Status: Prescrib ed on: 09/15/19 15 11:28AM; Disconti nued Status: Disconti nued on: 01/21/20 15 9:10AM;U ser: [email or web address];Es t. Completi on: 09/25/19 15;Indic ation: Pharyngi tis - (8615 00);Phar Laurie fied: 09/15/19 15 11:28AM Not Available Not Available Not Available metronida zole 500 mg tablet take 1 tablet (500 mg) by oral route every 12 hours for 7 days 02/03 completed Not Available Not Available Not Available ciproflox acin 500 mg tablet take 1 tablet (500 mg) by oral route every 12 hours for 10 days 04/18 completed ciproflo xacin HCl 500 mg oral tablet;R ecorded Status: Recorded on: 03/22/20 15 3:14PM;D iscontin ued Status: Disconti nued on: 04/18/20 15 4:33PM;U ser: [email or web address] burrell;Est. Completi on: 04/01/20 15;Print ed: 03/22/20 15 Not Available Not Available Not Available omeprazol e 40 mg capsule,d elayed release take 1 capsule (40 mg) by oral route once daily before a meal for 30 days 11/24 completed omeprazo le 40 mg oral capsule, delayed release( /EC);R ecorded Status: Recorded on: 02/05/20 12 4:21PM;D iscontin ued Status: Disconti nued on: 11/25/19 13 11:25AM; User: Amirah st. Completi on: 08/04/19 13;Print ed: 02/05/20 12 Not Available Not Available Not Available amoxicill in 500 mg tablet take 1 tablet (500 mg) by oral route every 12 hours for 7 days 11/24 completed amoxicil tony 500 mg oral tablet;R ecorded Status: Recorded on: 07/31/19 13 10:14AM; Disconti nued Status: Disconti nued on: 11/25/19 13 11:25AM; User: Guera st. Completi on: 08/07/19 13;Indic ation: Acute Bacteria l Sinusiti s - (08.4619 00);Prin mason: 07/31/19 13 Not Available Not Available Not Available pantopraz ole 20 mg tablet,de layed release Take 1 tablet every day by oral route. 10/05 completed Not Available Not Available Not Available oxycodone -acetamin ophen 5 mg-325 mg tablet 04/09 completed Not Available Not Available Not Available Motrin 800 mg tablet take 1 tablet by oral route 3 times a day as needed 09/04 completed Motrin 800 mg oral tablet;R ecorded Status: Recorded on: 10/11/19 11 10:48AM; Disconti nued Status: Disconti nued on: 09/05/19 12 4:03PM;U ser: [email or web address];Lani rinted: 10/11/19 11 Not Available Not Available Not Available ceftriaxo ne 1 gram solution for injection Take 1 g by injectio n route. 02/03 completed Not Available Not Available Not Available propranol ol 40 mg tablet Take 1 tablet twice a day by oral route as directed for 90 days, for tachycar ghassan. active Not Available Not Available No t Available Metrogel Vaginal 0.75 % (37.5 mg/5 gram) insert 1 applicat orful (37.5 mg) by vaginal route 2 times per day in the morning and evening for 5 days 03/22 completed Metrogel Vaginal 0.75 % vaginal gel;Pres cribe Status: Prescrib ed on: 01/28/20 15 2:50PM;D iscontin ued Status: Disconti nued on: 03/22/20 15 2:44PM;U ser: clifford; Est. Completi on: 02/02/20 15;Pharm acyVerif ied: 01/28/20 15 2:50PM Not Available Not Available Not Available estradiol 1 mg tablet take 1 tablet (1 mg) by oral route once daily for two weeks, then one po prn for spotting 03/22 completed estradio l 1 mg oral tablet;P rescribe Status: Prescrib ed on: 07/27/19 15 3:12PM;D iscontin ued Status: Disconti nued on: 03/22/20 15 2:44PM;U ser: claudia;P harmacyV erified: 07/27/19 15 3:12PM Not Available Not Available Not Available Depo-Prov era 150 mg/mL intramusc ular suspensio n inject 1 millilit er (150 mg) by intramus cular route every 3 months 01/31 completed Depo-Pro vera 150 mg/mL intramus cular suspensi on;Recor ded Status: Recorded on: 12/23/19 11 3:07PM;D iscontin ued Status: Disconti nued on: 02/01/20 12 2:44PM;U ser: [email or web address]; Printed: 12/23/19 11 Not Available Not Available Not Available Celexa 20 mg tablet take 1 tablet (20 mg) by oral route once daily for 30 days 09/07 completed Celexa 20 mg oral tablet;P rescribe Status: Prescrib ed on: 08/25/19 16 3:47PM;D iscontin ued Status: Disconti nued on: 09/08/19 16 10:15AM; User: fahad burrell;EstKhang Completi on: 09/24/19 16;Pharm Teresa ied: 08/25/19 16 3:47PM Not Available Not Available Not Available cephalexi n 500 mg capsule Take 1 capsule twice a day by oral route for 7 days. 02/03 completed Not Available Not Available Not Available pantopraz ole 40 mg tablet,de layed release Take 1 tablet every day by oral route. active Not Available Not Available No t Available promethaz ine 25 mg tablet take 1 tablet (25 mg) by oral route once daily as needed 11/15 completed prometha zine 25 mg oral tablet;R ecorded Status: Recorded on: 09/05/19 12 4:35PM;D iscontin ued Status: Disconti nued on: 11/16/19 12 2:31PM;U ser: calvom;E st. Completi on: 10/05/19 12;Print ed: 09/05/19 12 Not Available Not Available Not Available omeprazol e 20 mg capsule,d elayed release take 1 capsule (20 mg) by oral route once daily before a meal for 30 days 02/04 completed omeprazo le 20 mg oral capsule, delayed release( /EC);R ecorded Status: Recorded on: 12/11/19 12 9:59AM;D iscontin ued Status: Disconti nued on: 02/05/20 12 4:21PM;U ser: calvom;E st. Completi on: 06/08/19 13;Print ed: 12/11/19 12 Not Available Not Available Not Available Macrodant in 100 mg capsule take 1 capsule by oral route 3 times a day 11/24 completed Macrodan tin 100 mg oral capsule; Recorded Status: Recorded on: 05/29/19 13 11:58AM; Disconti nued Status: Disconti nued on: 11/25/19 13 11:25AM; User: [email or web address]; Printed: 05/29/19 13 Not Available Not Available Not Available cephalexi n 500 mg tablet take 1 tablet (500 mg) by oral route every 12 hours for 10 days 02/24 completed cephalex in 500 mg oral tablet;R ecorded Status: Recorded on: 06/26/19 14 2:28PM;D iscontin ued Status: Disconti nued on: 02/25/20 14 11:32AM; User: [email or web address];E st. Completi on: 07/07/19 14;Indic ation: [employer] e Infectio n - (12.6869 00);Prin mason: 06/26/19 14 Not Available Not Available Not Available dexametha sone sodium phosphate 4 mg/mL injection solution Inject 1 mL as needed by intramus cular route. 2023 active Not Available Not Available Not Avai lable methylpre dnisolone 4 mg tablets in a dose pack 10/05 completed Not Available Not Available Not Available propranol ol 20 mg tablet 10/05 completed Not Available Not Available Not Available ondansetr on 4 mg disintegr ating tablet 02/03 completed Not Available Not Available Not Available fluticaso ne propionat e 50 mcg/actua tion nasal spray,[employer] pension USE 1 SPRAY(S) IN EACH NOSTRIL ONCE DAILY active Not Available Not Available No t Available sertralin e 50 mg tablet take 1 tablet (50 mg) by oral route once daily for 30 days 10/01 completed Not Available Not Available Not Available lamotrigi ne 100 mg tablet 10/05 completed Not Available Not Available Not Available amoxicill in 875 mg-potass ium clavulana te 125 mg tablet 03/23 completed Not Available Not Available Not Available Inderal LA 60 mg capsule,e xtended release take 1 capsule (60 mg) by oral route daily 11/24 completed Inderal LA 60 mg oral capsule, extended release 24 hr;Recor ded Status: Recorded on: 12/11/19 12 9:59AM;D iscontin ued Status: Disconti nued on: 11/25/19 13 11:25AM; User: [email or web address];E st. Completi on: 06/08/19 13;Indic ation: Migraine Preventi on - (3469 );Prin mason: 12/11/19 12 Not Available Not Available Not Available Bactrim DS 800 mg-160 mg tablet take 1 tablet by oral route every 12 hours for 10 days 11/01 completed Bactrim DS 800-160 mg oral tablet;R ecorded Status: Recorded on: 10/19/19 11 2:04PM;D iscontin ued Status: Disconti nued on: 11/02/19 11 4:22PM;U ser: [email or web address]; Est. Completi on: 10/29/19 11;Indic ation: Bacteria l Urinary Tract Infectio n - (5990 );Prin mason: 10/19/19 11 Not Available Not Available Not Available Ortho Evra 150 mcg-35 mcg/24 hr transderm al patch apply 1 patch by transder mal route once weekly for 3 weeks; replace new patch after 7 day patch free interval 05/25 completed Ortho Evra 150-35 mcg/24 hr transder mal patch weekly;R ecorded Status: Recorded on: 01/12/20 10 3:54PM;D iscontin ued Status: Disconti nued on: 05/25/19 11 11:01AM; User: [email or web address];E st. Completi on: 02/23/20 10;Print ed: 01/12/20 10 Not Available Not Available Not Available minocycli ne 100 mg tablet take 1 tablet by oral route 2 times a day for 14 days 03/30 completed minocycl ine 100 mg oral tablet;P rescribe Status: Prescrib ed on: 02/25/20 14 12:30PM; Disconti nued Status: Disconti nued on: 03/30/20 14 10:39AM; User: irma Est. Completi on: 03/10/20 14;Indic ation: Pelvic Inflamma tory Disease - (614.0); Pharmacy Verified : 02/25/20 14 12:30PM Not Available Not Available Not Available Ortho-Cyc maddy (28) 0.25 mg-35 mcg tablet take 1 tablet by oral route once daily continuo usly, skipping inactive pills 06/23 completed Ortho-Cy clen (28) 0.25-35 mg-mcg oral tablet;P rescribe Status: Prescrib ed on: 04/19/20 15 2:20PM;D iscontin ued Status: Disconti nued on: 06/23/19 16 4:51PM;U ser: [email or web address] LuisEstKhang Completi on: 07/11/19 16;Pharm acyVerif ied: 04/19/20 15 2:20PM Not Available Not Available Not Available nitrofura ntoin monohydra te/macroc rystals 100 mg capsule Take 1 capsule every 12 hours by oral route as directed for 7 days. 02/03 completed Not Available Not Available Not Available Mucinex D 60 mg-600 mg tablet,ex tended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
--- OUTSIDE RECORDS SUMMARY | 2024-10-23 15:03 | XMS_ITS | Encounter Summary ---
Author Organization Healthcare Address [address] [place] [address] Care Team Providers Care Equipment Operat0R Name Role Phone Antoine Juana Villanueva APRN Primary Care Provider [phone] Encounter Details Date Type Department Care Team (Late st Contact Info) Description 09/22/2024 Results Follow-Up Obstetrics & Gynecology [address] [place] [address] Michelle Arenas APRN, DNP [address] [place] [address] Social History Tobacco Use Types Packs/Day Years [...] place to sleep or slept in a [place] care facility (including now)? No 05/06/2023 PHQ-9 Answer Date [...] Visit Obstetrics & Gynecology [address] [place] [address] Serjio Massey MD [address] [place] [address] documented as of this encounter Visit Diagnoses [...] documented as of this encounter Care Teams Equipment Operat0R Relationship Specialty Start Date End Date Juana cShultz APRN [address] [place] [address] PCP - General 02/20/23 documented as of this encounter
--- OUTSIDE RECORDS SUMMARY | 2024-10-23 15:03 | XMS_ITS | Encounter Summary ---
Author Organization [facility] Address [address] [place] [address] Care Team Providers Care Drip Pumper Name Role Phone Antoine, Juana F ROSMERY Primary Care Provider Reason for Visit * Reason Onset Date Comments HCN - Patient Message 10/15/2024 Encounter Details Date Type Department Care Team (Late st Contact Info) Description 10/15/2024 Telephone [facility] [address] [place] [address] Luisa Pulido, PA [address] [address] HCN - Patient Message Social History Tobacco Use Types Packs/Day Years [...] PM EDT documented as of this encounter Miscellaneous Notes * Telephone Encounter - Nupur [place] R - 10/16/2024 8:42 AM EDT I have faxed office notes from 09/18 and 10/02 as well as work restriction letter. 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 Follow-up communication and further actions as a result of this message need to be communicated with the patient directly, if the patient is not active onMyChart. If the patient is active on MyChart, they will receive notification of the communication/outcome via Social DJhart. documented in this encounter Plan of Treatment Upcoming Encounters Date Type Department Care Team (Late st Contact Info) Description 11/23/2024 9:00 AM EDT Office Visit Obstetrics & Gynecology [address] [place] [address] Serjio Massey MD [address] [place] [address] documented as of this encounter [...] documented as of this encounter Care Teams Drip Pumper Relationship Specialty Start Date End Date Juana Schultz APRN [address] [place] [address] PCP - General 02/20/23 documented as of this encounter
--- OUTSIDE RECORDS SUMMARY | 2024-10-23 15:03 | XMS_ITS | Clinical Summary ---
Author Organization [facility] Address [address] [place] [address] Care Team Providers Care Sports Equipment Racker Name Role Phone AntoineJuana flores ROSMERY Primary Care Provider Allergies Active Allergy Reactions Criticality Noted Date Comments Latex Other - please docum ent in the comment field Low 05/23/2012 Levofloxacin Rash Low 04/08/2018 Medications * This document contains information received from the source organization and may not represent a complete record from that organization. levonorgestrel (Mirena, 52 MG,) 20 MCG/24HR IUD by Intrauterine route. 05/13/19 19 Active linaCLOtide (Linzess) 290 MCG capsule Take 1 capsule (290 mcg) by mouth 1 (one) time each day before breakfast. 30 capsule 11 03/24/20 24 025 Active ivabradine HCl (Corlanor) 5 MG tablet 03/30/20 24 Active levocetirizine (Xyzal) 5 MG tablet Take 1 tablet (5 mg) by mouth 1 (one) time each day in the evening. 30 tablet 11 04/09/20 24 025 Active lamoTRIgine (LaMICtal) 200 MG tabletIndications :Unspecified mood (affective) disorder (CMS/HCC) Take 1 tablet (200 mg) by mouth daily. 90 tablet 1 07/17/19 25 025 Active Airsupra 90-80 MCG/ACT aerosol 07/30/19 25 Active fluticasone (Flonase) 50 MCG/ACT nasal spray use 1 spray(s) in each nostril once daily 02/04/20 24 Active pantoprazole (Protonix) 40 MG EC tablet 06/26/19 25 Active lisdexamfetamine (Vyvanse) 60 MG capsuleIndication s:ADHD (attention deficit hyperactivity disorder), inattentive type Take 1 capsule by mouth every morning. 30 capsule 10/10/19 25 025 Active sertraline (Zoloft) 50 MG tabletIndications :Anxiety Take 1 tablet by mouth daily. 30 tablet 1 07/31/19 25 025 Discontinu ed(Per Patient Report) lisdexamfetamine (Vyvanse) 60 MG capsuleIndication s:ADHD (attention deficit hyperactivity disorder), inattentive type Take 1 capsule by mouth every morning. 30 capsule 08/28/19 25 025 Discontinu ed(Reorder ) Hospital, Clinic, or Other Facility Administered Medication Ordered Dose Route Frequency Start Date End Date Status levonorgestrel (Mirena) 20 MCG/DAY IUD 1 eachIndications:Enco unter for removal and reinsertion of IUD 1 each IU Once PRN Procedure 10/23/2024 10/23/2024 Ended Active Problems Problem Noted Date Diagnosed Date Obesity (BMI 35.0-39.9 without comorbidity) 05/06 Shortness of breath 12/19/2021 Dizziness 12/19/2021 Palpitations 12/19/2021 Mild mitral regurgitation 12/19/2021 Anxiety disorder, unspecified 03/06/2021 Hydronephrosis 07/13/2020 Stomach erosion 07/06/2020 Alternating constipation and diarrhea 04/20/2020 Dysphagia, oropharyngeal phase 04/20/2020 Hematochezia 04/20/2020 Binge eating 04/06/2020 ADHD (attention deficit hype ractivity disorder), inattentive type 03/10/2020 Daytime somnolence 03/10/2020 Chronic headaches 12/01/2019 Appetite loss 11/25/2019 Proteinuria 11/25/2019 Urine ketones 11/25/2019 Low back pain 09/16/2019 Labile mood 06/22/2019 Nausea 03/31/2019 Unspecified mood (affective) disorder 04/08/2018 Environmental allergies 04/08/2018 Resolved Problems Problem Noted Date Diagnosed Date Resolved Date Major depressive disorder, r ecurrent, unspecified 03/06/2021 03/06/2021 Snoring 04/18/2020 05/15/2023 Encounters * This document contains information received from the source organization and may not represent a complete record from that organization. Date Type Department Care Team Description 10/23/2024 10:45 AM EDT Procedure Visit Obstetrics & Gynecology [address] [place] [address] Michelle Arenas APRN, DNP Encounter for removal and reinsertion of IUD (Primary Dx); Screening examination for STD (sexually transmitted disease); Family planning education, guidance, and counseling; Mass overlapping multiple quadrants of right breast 10/23/2024 Travel 10/22/2024 Travel 10/15/2024 Telephone [facility] [address] [address] Luisa Pulido PA HCN - Patient Message 10/02/2024 1:30 PM EDT Office Visit [place] [address] [place] [address] Luisa Pulido PA Crushing injury of left hand and finger, subsequent encounter (Primary Dx) 10/02/2024 Travel 09/22/2024 Results Follow-Up Obstetrics & Gynecology [address] [place] [address] Michelle Arenas APRN, DNP 09/21/2024 3:00 PM EDT Procedure Visit Obstetrics & Gynecology [address] [place] [address] Michelle Arenas APRN, DNP Encounter for gynecological examination without abnormal finding (Primary Dx); IUD check up; Endometriosis; Family planning education, guidance, and counseling; Screen for STD (sexually transmitted disease) 09/21/2024 Travel 09/18/2024 12:50 PM EDT Office Visit [facility] [place] [address] Luisa Pulido PA Crushing injury of left hand and finger, subsequent encounter (Primary Dx); Hand pain, left 09/18/2024 Travel 09/17/2024 Orders Only External Location [address] [place] [address] Provider, External 09/17/2024 Orders Only External Location [address] [place] [address] Provider, External 09/17/2024 Travel 08/26/2024 Telephone [facility] [place] [address], [address] [place] [address] Leonardo Bhandari MD 07/30/2024 Travel from Last 3 Months Immunizations Immunization Administration Dates Next Due DTaP, Unspecified 05/25/1997 HPV, Unspecified 05/25/2010,01/11/2010, 0 Hep A, Adult 01/07/2019,04/03/2018 Hep A, Unspecified 12/18/2017 Hep B, adult 05/16/1994,1993,1993 Influenza, Unspecified 01/14/2020,01/21/2019 Influenza, injectable, quadrivalent 04/03/2018 Influenza, injectable, quadr ivalent, preservative free 02/07/2023,02/13/2022,02/10/2021,2018 Influenza, seasonal, injectable 02/27/2011 Influenza, seasonal, injecta ble, preservative free 01/29/2024 MMR 05/25/1997,08/02/1994 OPV 05/25/1997 [email or web address] COVID-19 Vac cine (Purple Cap) 12+ 05/11/2020,04/20/2020 Tdap 06/17/2017 Varicella 09/03/2022 Family History Medical History Relation Name Comments Drug abuse Brother 1 Don Hepatitis, C Virus Brother 1 Don Hypertension Brother 1 Don Broken bones Brother 2 Trace Heart disease Father Marvin Hypertension Father Marvin Cancer Maternal Grandfather Ema Heart disease Maternal Grandfather Ema Hypertension Maternal Grandfather Ema Alcohol abuse Mother Milka Depression Mother Milka Drug abuse Mother Milka Hepatitis, C Virus Mother Milka Hypertension Mother Milka Liver disease Mother Milka MRSA Mother Milka Rheumatologic disease Mother Milka Diabetes Mother's Brother Jose Kidney disease Mother's Brother Jose Heart disease Paternal Grandfather Shorty Hyperlipidemia Paternal Grandfather Shorty Hypertension Paternal Grandfather Shorty Stroke Paternal Grandfather Shorty Hypertension Paternal Grandmother Disna Relation Name Status Comments Brother 1 Don Brother 2 Trace Alive Father Marvin Maternal Grandfather Ema Mother Milka Mother's Brother Jose Paternal Grandfather Shorty Paternal Grandmother Disna Social History Tobacco Use Types Packs/Day Years Used Date Smoking Tobacco: Never Smokeless Tobacco: Never Tobacco Cessation:Counseling Given: Not Answered Alcohol Use Standard Drinks/Week Comments Yes 1 [...] place to sleep or slept in a care home (including now)? No 05/06/2023 PHQ-9 Answer Date Recorded Patient Health Questionnaire-9 Score 2 12/30/2023 Utilities Answer Date Recorded In the past 12 months has [employer] electric, gas, oil, or water company threatened [...] Orientation Straight 03/05/2021 8: 14 PM EDT Last Filed Vital Signs Vital Sign Reading Time Taken Comments Blood Pressure 137/82 10/23/2024 11:20 AM EDT Pulse 74 10/23/2024 11:20 AM EDT Temperature 36.8 C (98.2 F) 10/23/2024 11:20 AM EDT Respiratory Rate 18 11/08/2023 9:06 AM EDT Oxygen Saturation 100% 10/23/2024 11:20 AM EDT Inhaled Oxygen Concentration - - Weight 100 kg (221 lb 5.5 oz) 10/23/2024 11:20 A M EDT Height 162.6 cm (5' 4 ) 10/23/2024 11:20 AM EDT Body Mass Index 37.99 10/23/2024 11:20 AM EDT Plan of Treatment Upcoming Encounters Date Type Department Care Team (Late st Contact Info) Description 11/23/2024 9:00 AM EDT Office Visit Obstetrics & Gynecology [address] [place] [address] Serjio Massey MD [address] [place] [address] Health Maintenance Due Date Last Done Comments [facility]-/Child/Adol SDOH Screenings 1993 [facility]-IPV Vaccines (2 of 3 - 4-dose series) 06/22/1997 05/25/1997 [facility]- SDOH Screenings 2011 [facility]-Adult SDOH Screenings 2011 [facility]-Varicella Vaccines (2 of 2 - 13+ 2-dose series) 10/01/2022 09/03/2022 VTP-QTATR-50 Vaccine (3 - season) 2024 05/11/2020, 04/20/2020 [facility]-Depression Screening 10/23/2025 10/23/2024, 12/05 [facility]-Pap Smear 05/15/2026 05/15/2023, 05/23/2018 [facility]-DTaP,Tdap,and Td Vaccines (3 - Td or Tdap) 06/17/2027 06/17/2017, 05/25/1997 [facility]-Cervical Cancer Screening 09/21/2029 [facility]-HPV/Cotest 09/21/2029 09/21/2024, 05/06, 05/23/2018 [facility]-Zoster Vaccines (1 of 2) 2043 09/03/2022 [facility]-Hepatitis B Vaccines Completed 995, 1993, 1993 HPV Vaccines Completed 05/25/2010, 12/2009, 11/10/2009 [facility]-HIV Screening Completed 05/13/2018 [facility]-Hepatitis C Screening Completed 05/13/2018 [facility]-Hepatitis A Vaccines Completed 019, 04/03/2018, 12/18/2017 [facility]-Influenza Vaccine Completed 01/29/2024 , 02/07/2023, 02/13/2022, Additional history exists [facility]-Obesity Intervention Completed 025, 10/02/2024, 09/21/2024, Additional history exists [facility]-HIB Vaccines Aged Out No longer e ligible based on patient's age to complete this topic [facility]-Pneumococcal Vaccine: Pediatrics (0 to 5 Years) and At-Risk Patients (6 to 49 Years) Aged Out No longer eligible based on patient's age to complete this topic [facility]-Rotavirus Vaccines Aged Out No lo nger eligible based on patient's age to complete this topic Procedures Procedure Name Priority Date/Time Associated Diagnosis Comments PA REMOVE INTRAUTERINE DEVICE Routine 10/23/2024 11:46 AM EDT Encounter for removal and reinsertion of IUD PA INSERT INTRAUTERINE DEVICE Routine 10/23/2024 11:46 AM EDT Encounter for removal and reinsertion of IUD POCT , URINE Routine 10/23/2024 11:20 AM EDT Encounter for removal and reinsertion of IUD REFERRED THINPREP PAP AND HPV (SO) Routine 09/21/2024 3:37 PM EDT Encounter for gynecological examination without abnormal finding NEISSERIA GONORRHEA DNA BY PCR Routine 09/21/2024 3:37 PM EDT Screen for STD (sexually transmitted disease) CHLAMYDIA TRACHOMATIS DNA BY PCR Routine 09/21/2024 3:37 PM EDT Screen for STD (sexually transmitted disease) TRICHOMONAS VAGINALIS ANTIGEN Routine 09/21/2024 3:37 PM EDT Screen for STD (sexually transmitted disease) XR MSK OUTSIDE IMAGES 09/17/2024 2:25 PM EDT XR MSK OUTSIDE IMAGES 09/17/2024 2:25 PM EDT PAP TEST - CYTOLOGY Routine 05/15/2023 1 0:30 AM EST Encounter for gynecological examination (general) (routine) without abnormal findings HEPATITIS C ANTIBODY W/REFLEX TO HCV QUANT PCR Routine 05/13/2018 10:30 AM EST HIV 1/2 ANTIBODY/ANTIGEN SCREEN WITH REFLEX TO HIV I/II DIFFERENTIATION Routine 05/13/2018 10:30 AM EST from Last 3 Months or Most Recently Relevant to Health Maintenance Results * PA INSERT INTRAUTERINE DEVICE, PA REMOVE INTRAUTERINE DEVICE (10/23/2024 11:46 AM EDT) Narrative Michelle Arenas APRN, DNP - 10/23/2024 11:46 AM EDT Michelle Arenas APRN, DNP 10/23/2024 11:55 AM IUD Management Date/Time: 10/23/2024 11:46 AM Performed by: Michelle Arenas APRN, DNP Authorized by: Michelle Arenas APRN, DNP Procedure: IUD removal and insertion Consent obtained by patient, parent, or legal power of bean picker - including discussion of procedure risks and [...] 8 years Insertion comments: Pt tolerated well. [facility]: [id number] EXP: 09/03/2026 LOT: [id number] Michelle Arenas APRN, DNP IN CLINIC/BEDSIDE ORDER [...] CARE TEST ENTE R/EDIT ORDERABLES Final Result * Referred ThinPrep Pap and HPV (SO) (09/21/2024 3:37 PM EDT) Pap, Source Cx/Vagina 09/29/2024 5:38 PM EDT [facility] ([facility] EER Referred ThinPrep Pap and HPV See Note 09/29/2024 5:38 PM EDT [facility] ([facility]) PAP, THINPREP Normal 09/29/2024 5:38 PM EDT [facility] ([facility]) High Risk HPV Normal 09/29/2024 5:38 PM EDT [facility] ([facility]) Swab Vaginal and cervical cytologic material / Unknown Non-blood Collection / Unknown 09/21/2024 3:37 PM EDT 09/21/2024 5:45 PM EDT Narrative [facility] ([facility]) - 09/29/2024 5:38 PM EDT Authorized individuals can access the [employer] Enhanced Report with an [employer] Connect account using the following link. Your local lab can assist you in obtaining the patient report if you don't have a Connect account. [email or web address] Performed By: [facility] [address] [place] [id number] Pulmonary Disease Specialist: Don Santana MD, PhD CLIA Number: [id number] SPECIMEN PART A. Cervical, Endocervical, Vaginal, ThinPrep Pap (Infrastructure Analyst) CYTOLOGY HX Date of Last Menstrual Period: N FINAL DIAGNOSIS INTERPRETATION: Negative for Intraepithelial Lesion or Malignancy. SPECIMEN ADEQUACY:Satisfactory for evaluation. Endocervical/transformation zone component present. Electronically Signed Out : Ema Boyd Performed by: [facility] [address] [place] [address] [place] [address] Shana Donahue MD, HR-HPV: Negative Test performed by the FDA-approved [employer] (Gen-Probe) APTIMA HPV test, which detects HPV genotypes: 16, 18, 31, 33, 35, 39, 45, 51, 52, 56, 58, 59, 66, and 68. This assay has been cleared for the specimen types listed below. Other specimen types have not been validated for this assay. -Clinician-collected ThinPrep Pap cervical specimens. Performed by: [facility] [employer] [place] [address] Shana Donahue MD, us Michelle Arenas APRN, DNP LAB REF LAB BLOOD AND F LUID ORD Final Result [facility] ([address] [address] * Trichomonas Vaginalis Antigen (09/21/2024 3:37 PM EDT) Trichomonas vaginalis Antigen Result Negative Negative 09/21/2024 10:12 PM EDT [facility] Swab Vaginal structure / Unknown Non-blood Collection / Unknown 09/21/2024 3:37 PM EDT 09/21/2024 5:46 PM EDT Narrative [facility] - 09/21/2024 10:12 PM EDT This test was developed and its performance characteristics determined by [facility]. It has not been [...] clinical laboratory testing. us Michelle Arenas APRN, DNP LAB MICROBIOLOGY - GENE RAL ORDERABLES Final Result Performing Organization Address City/[facility]/ZIP Co de Phone Number [facility] [address] [place] [address] * Chlamydia trachomatis DNA by PCR (09/21/2024 3:37 PM EDT) Chlamydia trachomatis DNA PCR Result Not Detected Not Detected 09/22/2024 11:24 AM EDT [facility] Swab Vaginal structure / Unknown Non-blood Collection / Unknown 09/21/2024 3:37 PM EDT 09/21/2024 5:47 PM EDT Narrative [facility] - 09/22/2024 11:24 AM EDT This test is performed by the [employer] m2000 instrument for Real Time PCR C. trachomatis and N. gonorrhea. This test is FDA approved for use with endocervical, vaginal, and urine specimens. This test is used for clinical purposes. It should not be regarded as invesigational or for research. The [facility] is certified under the Clinical Laboratory Improvement Amendments of 1988 (CLIA-88) as qualified to perform high complexity clinical laboratory testing. Michelle Arenas APRN, DNP LAB MICROBIOLOGY - [facility] ORDERABLES Final Result [facility] [address] [place] [address] * Neisseria gonorrhea DNA by PCR (09/21/2024 3:37 PM EDT) Neisseria gonorrhea DNA PCR Result Not Detected Not Detected. 09/22/2024 11:24 AM EDT [facility] Swab Vaginal structure / Unknown Non-blood Collection / Unknown 09/21/2024 3:37 PM EDT 09/21/2024 5:47 PM EDT Narrative [facility] - 09/22/2024 11:24 AM EDT This test is performed by the [employer] m2000 instrument for Real Time PCR C. trachomatis and N. gonorrhea. This test is FDA approved for use with endocervical, vaginal, and urine specimens. This test is used for clinical purposes. It should not be regarded as invesigational or for research. The [facility] is certified under the Clinical Laboratory Improvement Amendments of 1988 (CLIA-88) as qualified to perform high complexity clinical laboratory testing. us Michelle Arenas APRN, DNP LAB MICROBIOLOGY - GENE RAL ORDERABLES Final Result [facility] [address] [place] [address] * XR MSK OUTSIDE IMAGES (09/17/2024 2:25 PM EDT) Only the most recent of2 resultswithin the time period is included. Anatomical Region Laterality Modality Radiographic Ofelia ging 09/17/2024 2:2 5 PM EDT us External Provider IMG XR PROCEDURES Final Result * Pap Test (05/15/2023 10:30 AM EST) Case Report Cytology Case: [id number] Authorizing Provider: Michelle Arenas APRN, DNP Collected: 05/15/2023 1030 Ordering Location: Obstetrics & Gynecology Received: 05/16/2023 1043 First Screen: Jerilyn Cheung Specimen: ThinPrep Pap Test, Liquid-Based Cervical/Vaginal 05/21/2023 10:32 AM EST [facility] Interpretation NEGATIVE FOR INTRAEPITHELIAL LESION OR MALIGNANCY 05/21/2023 10:32 AM EST [facility] at 1032 EST Specimen Adequacy Satisfactory for evaluation; endocervical/bass sformation zone component present. Slide scanned and imaged by ThinPrep Imaging System with manual review of all selected gordon. 05/21/2023 10:32 AM EST [facility] Cervical cytology is a screening test primarily for squamous cancers and precursors and has associated false negative and positive results. New technologies such as liquid based sampling may decrease but will not eliminate all false negative results. Regular screening and follow-up of unexplained clinical signs and symptoms are recommended to minimize false negative results. Please see the ASCCP website (www.asccp.org)fo r followup recommendations. If HPV testing was requested, correlation with the results is suggested (please call Microbiology at [phone] for results). 05/21/2023 10:32 AM EST [facility] Menstrual Status Not Applicable 05/06 10:32 AM EST [facility] Contraceptive History Intrauterine device 05/21/2023 10:32 AM EST [facility] Screening Type Routine Screen 2023 10:32 AM EST [facility] High Risk? No 05/21/2023 10:32 AM EST [facility] HPV Testing Requested? Request HPV Testing Regardless of Pap Test Findings 05/21/2023 10:32 AM EST [facility] Previous Cancer History No 05/21/2023 10:32 AM EST [facility] Clinical Information Z01.419 - Encounter for gynecological examination (general) (routine) without abnormal findings [ICD-10-CM] 05/21/2023 10:32 AM EST [facility] Swab Vaginal and cervical cytologic material / Unknown Non-blood Collection / Unknown 05/15/2023 10:30 AM EST 05/16/2023 10:43 AM EST Michelle Arenas APRN, YOU LAB CYTOLOGY ORDERABLES Final Result Performing Organization Address [facility]/ZIP Co de Phone Number [facility] [address] [place] [address] * HIV 1 & 2 Antibody/Antigen Screen (05/13/2018 10:30 AM EST) HIV 1 Result NONREACTIVE Screening for HIV 1 and 2 antibodies is NONREACTIVE. No confirmatory testing is required. [facility] 05/13/2018 10:3 0 AM EST 05/13/2018 12:55 PM EST Ramila Cruz APRN LAB BLOOD ORDERABLES Final Result Performing Organization Address City/[facility] Co de Phone Number [facility] * Hepatitis C Antibody (05/13/2018 10:30 AM EST) Hepatitis C Antibody NEGATIVE Reference Range: Negative [facility] 05/13/2018 10:3 0 AM EST 05/13/2018 12:55 PM EST Ramila Cruz APRN LAB BLOOD ORDERABLES Final Result [facility] from Last 3 Months or Most Recently Relevant to Health Maintenance Insurance [place] [id number] ANTHEM YOUS[place] [address] [employer] Care Teams Sports Equipment Racker Relationship Specialty Start Date End Date Juana Schultz APRN [address] [place] [address] [phone] PCP - General 02/20/23
--- OUTSIDE RECORDS SUMMARY | 2024-10-23 15:03 | XMS_ITS | Encounter Summary ---
Author Organization [facility] Address [address] [place] [address] Care Team Providers Care Storeroom Clerk Name Role Phone Juana Schultz ROSMERY Primary Care Provider Encounter Details Date Type Department Care Team (Latest Contact Info) Description 10/23/2024 Travel Social History Tobacco Use Types Packs/Day [...] place to sleep or slept in a prison (including now)? No 05/06/2023 PHQ-9 Answer Date Recorded Patient Health Questionnaire-9 Score 2 12/30/2023 Utilities Answer Date Recorded In the past 12 months has th e [employer], gas, oil, or water company threatened to [...] PM EDT documented as of this encounter Functional Status * Over the past 2 weeks, how often have you been bothered by any of the following problems? Question Answer Date of Assessment Author Little interest or pleasure in doing things Not at all 10/23/2024 11:23 AM EDT Angélica Shrestha Feeling down, depressed, or hopeless Not at all 10/23/2024 11:23 AM NATALIET Angélica Shrestha Patient Health Questionnaire -2 Score [...] Angélica Shrestha documented as of this encounter Plan of Treatment Upcoming Encounters Date Type Department Care Team (Late st Contact Info) Description 11/23/2024 9:00 AM EDT Office Visit Obstetrics & Gynecology [address] [place] [address] Serjio Massey MD [address] [place] [address] documented as of this encounter [...] documented as of this encounter Care Teams Storeroom Clerk Relationship Specialty Start Date End Date Juana Schultz APRN [address] [place] [id number] PCP - General 02/20/23 documented as of this encounter
--- OUTSIDE RECORDS SUMMARY | 2024-10-23 15:03 | XMS_ITS | Encounter Summary ---
Author Organization [facility] Address [address] [place] [address] Care Team Providers Care Career Technical Education Instructor Name Role Phone Juana Schultz ROSMERY Primary Care Provider Encounter Details Date Type Department Care Team (Latest Contact Info) Description 10/22/2024 Travel Social History Tobacco Use Types Packs/Day [...] place to sleep or slept in a intermediate (including now)? No 05/06/2023 PHQ-9 Answer Date [...] Visit Obstetrics & Gynecology [address] [place] [address] Serjio Massey MD [address] [place] [address] documented as of this encounter [...] documented as of this encounter Care Teams Career Technical Education Instructor Relationship Specialty Start Date End Date Juana Schultz APRN [address] [place] [id number] PCP - General 02/20/23 documented as of this encounter
--- OUTSIDE RECORDS SUMMARY | 2024-10-23 15:03 | XMS_ITS | Encounter Summary ---
Author Organization [facility] Address [address] [place] [address] Care Team Providers Care Product Info Specialist Name Role Phone Juana Schultz ROSMERY Primary Care Provider Encounter Details Date Type Department Care Team ([facility] st Contact Info) Description 09/17/2024 Orders Only External Location [address] [place] [id number] Provider, External Social History Tobacco Use Types [...] place to sleep or slept in a detention (including now)? No 05/06/2023 PHQ-9 Answer Date [...] Visit Obstetrics & Gynecology [address] [place] [address] Serjio Massey MD [address] [place] [address] documented as of this encounter [...] documented as of this encounter Care Teams Product Info Specialist Relationship Specialty Start Date End Date Juana Schultz APRN [address] [place] [address] PCP - General 02/20/23 documented as of this encounter
--- OUTSIDE RECORDS SUMMARY | 2024-10-23 15:03 | XMS_ITS | Encounter Summary ---
Author Organization [facility] Address [address] [place] [address] Care Team Providers Care In Flight Technician Name Role Phone Juana Schultz ROSMERY Primary Care Provider Encounter Details Date Type Department Care Team (Latest Contact Info) Description 09/17/2024 Travel Social History Tobacco Use Types Packs/Day [...] place to sleep or slept in a usp (including now)? No 05/06/2023 PHQ-9 Answer Date [...] Visit Obstetrics & Gynecology [address] [place] [address] Serjio Massey MD [address] [place] [address] documented as of this encounter [...] documented as of this encounter Care Teams In Flight Technician Relationship Specialty Start Date End Date Juana Schultz APRN [address] [place] [id number] PCP - General 02/20/23 documented as of this encounter
--- OUTSIDE RECORDS SUMMARY | 2024-10-23 15:03 | XMS_ITS | Encounter Summary ---
Author Organization [facility] Address [address] [place] [address] Care Team Providers Care Drum Reel Cutter Name Role Phone AntoineJuana flores ROSMERY Primary Care Provider [phone] Encounter Details Date Type Department Care Team ([facility] st Contact Info) Description 08/26/2024 Telephone [facility] [place] [address], [address] [place] [address] Leonardo Bhandari MD [address] [place] [address] Social History Tobacco Use Types Packs/Day Years [...] place to sleep or slept in a [facility] (including now)? No 05/06/2023 PHQ-9 Answer Date [...] encounter Miscellaneous Notes * Telephone Encounter - Lauryn Rivera - 08/26/2024 4:22 PM EDT Clinical Concern/Question Reason for Call: Dr. Bhandari - patient asking to be seen (has not been in clinic since 07/2021) Best contact number: [phone] (home) Optimal time of day to reach caller: ANYTIME Additional comments/information from caller: None Note: Please do not reply to this message. Follow-up communication and further actions as a result of this message need to be communicated with the patient directly, if the patient is not active onMyChart. If the patient is active on MyChart, they will receive notification of the communication/outcome via [employer]. documented in this encounter Plan of Treatment Upcoming Encounters Date Type Department Care Team (Late st Contact Info) Description 11/23/2024 9:00 AM EDT Office Visit Obstetrics & Gynecology [address] [place] [address] Serjio Massey MD [address] [place] [address] documented as of this encounter [...] documented as of this encounter Care Teams Drum Reel Cutter Relationship Specialty Start Date End Date Juana Schultz APRN [address] [place] [address] PCP - General 02/20/23 documented as of this encounter
--- OUTSIDE RECORDS SUMMARY | 2024-10-23 15:03 | XMS_ITS | Encounter Summary ---
Author Organization [facility] Address [address] [place] [address] Care Team Providers Care Electrophysiology Scientist Name Role Phone Juana Schultz ROSMERY Primary Care Provider Encounter Details Date Type Department Care Team (Latest Contact Info) Description 09/21/2024 Travel Social History Tobacco Use Types Packs/Day [...] place to sleep or slept in a group home (including now)? No 05/06/2023 PHQ-9 Answer Date Recorded Patient Health Questionnaire-9 Score 2 12/30/2023 Utilities Answer Date Recorded In the past 12 months has th e [employer], gas, oil, or water company threatened to [...] EDT Office Visit Obstetrics & Gynecology [address] [place] [address] Serjio Massey MD [address] [place] [address] documented as of this encounter [...] documented as of this encounter Care Teams Electrophysiology Scientist Relationship Specialty Start Date End Date Juana Schultz APRN [address] [place] [id number] PCP - General 02/20/23 documented as of this encounter
--- OUTSIDE RECORDS SUMMARY | 2024-10-23 15:03 | XMS_ITS | Encounter Summary ---
Author Organization [facility] Address [address] [place] [address] Care Team Providers Care Hand Brush Filler Name Role Phone Juana Schultz ROSMERY Primary Care Provider [phone] Encounter Details Date Type Department Care Team (Latest Contact Info) Description 10/02/2024 Travel Social History Tobacco Use Types Packs/Day [...] place to sleep or slept in a snf (including now)? No 05/06/2023 PHQ-9 Answer Date [...] Visit Obstetrics & Gynecology [address] [place] [address] Serjio Massey MD [address] [place] [address] documented as of this encounter [...] documented as of this encounter Care Teams Hand Brush Filler Relationship Specialty Start Date End Date Juana Schultz APRN [address] [place] [id number] PCP - General 02/20/23 documented as of this encounter
[2024-10-23 15:40] VITALS: PULSE 77; PULSE 82
[2024-10-23] MEDS: ALBUTEROL 0.083% 2.5 MG/3 ML NEB IH (15:40)
== END 2024-10-23 23:59 | disposition home or self-care (01) ==
LOC: RT 15:00
PROVIDERS: PCP Nurse Practitioner Family; Visit Provider Internal Medicine Pulmonary Disease
DX: R06.09 Other forms of dyspnea (principal); R06.02 Shortness of breath
CPT/HCPCS: 94060; 94618; 94640; 94726; 94729